=== PATIENT | male | born 1935 | race Caucasian/White ===

== ENCOUNTER 2018-01-25 14:55 | Observation (INO) | payer OTHER ==
--- NOTE | 2018-01-25 15:15 | PDOC ---
History of Present Illness - General Stated Complaint: Unresponsive Time Seen by Provider: 01/25/18 15:01 History Source: Patient Exam Limitations: Language Barrier ([id number]) - History of Present Illness Initial Comments: 01/25/18 16:03 82 yo M with a hx of vascular dementia, afib on eliquis, CVA, DM, HTN, HLD, BPH , and neurogenic bladder per nursing records BIBA for altered mental status that occurred at approximately 2pm. Per [facility] on [place], they stated he was unresponsive to voice for approximately 20 minutes with drooling, hypotension ( 95/57 normally normotensive), hypoxic (87%), with normal blood glucose (150). Per EMS, the patient was alert and responsive (patient only speaks Hong Konger) when they arrived. Per EMS, the patient was back to baseline per nursing staff. While in the department, the patient states he has no chief complaint and is asymptomatic. Denies the following: fever, chills, nausea, vomiting, FND, visual changes, chest pain, ears/nose/throat pain, SOB, abdominal pain, dysuria , hematuria, melena, hematochezia, diarrhea, and leg pain and swelling. Denies palpitations and LOC. Allergies: NKDA Social: Denies tobacco, alcohol, and drug use. Past History - Past Medical History Allergies/Adverse Reactions: Allergies Allergy/AdvReac Type Severity Reaction Status Date / Time No Known Allergies Allergy Verified 01/25/18 15:38 Home Medications: Ambulatory Orders Acetaminophen 1,000 mg PO DAILY 01/25/18 Alfuzosin HCl [Uroxatral] 10 mg PO DAILY 01/25/18 Apixaban [Eliquis -] 2.5 mg PO BID 01/25/18 Atorvastatin Ca [Lipitor] 40 mg PO HS 01/25/18 Docusate Sodium 200 mg PO HS 01/25/18 Donepezil HCl 10 mg PO HS 01/25/18 Escitalopram Oxalate [Lexapro -] 10 mg PO DAILY 01/25/18 Guaifenesin [Robitussin] 100 mg PO Q6H 01/25/18 Lisinopril 5 mg PO DAILY 01/25/18 Memantine HCl [Namenda Xr] 28 mg PO DAILY 01/25/18 Polyethylene Glycol 3350 17 gm PO BID 01/25/18 Risperidone [Risperdal -] 0.5 mg PO HS 01/25/18 Sennosides [Senokot] 8.6 mg PO HS 01/25/18 metFORMIN HCL [Metformin HCl] 500 mg PO BID 01/25/18 Review of Systems - Review of Systems Able to Perform ROS?: Yes (limited; dementia) Is the patient limited Fijian proficient: No Constitutional: No: Chills, Diaphoresis, Fever, Weakness HEENTM: No: Recent change in vision, Ear Pain, Nose Pain, Throat Pain, Mouth Pain Respiratory: No: Cough, Shortness of Breath, SOB with Exertion, Hemoptysis Cardiac (ROS): No: Chest Pain, Lightheadedness, Palpitations, Syncope, Chest Tightness ABD/GI: No: Constipated, Diarrhea, Nausea, Rectal Bleeding, Vomiting, Tarry Stools : No: Burning, Dysuria, Hematuria, Urgency Musculoskeletal: No: Back Pain, Joint Pain, Neck Pain Integumentary: No: Bruising, Rash Neurological: No: Headache, Numbness, Tremors, Unsteady Gait, Ataxia Psychiatric: No: Stressors Endocrine: No: Unexplained Weight Gain Hematologic/Lymphatic: No: Anemia, Blood Clots *Physical Exam - Physical Exam General Appearance: Yes: Nourished, Appropriately Dressed. No: Apparent Distress, Intoxicated HEENT: positive: EOMI, REGINE, Normal Voice, Symmetrical, Hearing Grossly Normal. negative: Pale Conjunctivae, Scleral Icterus (R), Scleral Icterus (L), Muffled /Hoarse voice, Nasal Congestion, Rhinorrhea, Sinus Tenderness, Excessive drooling Neck: positive: Trachea midline. negative: Tender, Lymphadenopathy (R), Lymphadenopathy (L), Tender lateral, Tender midline Respiratory/Chest: positive: Lungs Clear, Normal Breath Sounds. negative: Chest Tender, Respiratory Distress, Accessory Muscle Use Cardiovascular: positive: Regular Rate, S1, S2, Irregularly Irregular. negative : Systolic Murmur Gastrointestinal/Abdominal: positive: Normal Bowel Sounds, Flat, Soft. negative : Tender Lymphatic: negative: Adenopathy Musculoskeletal: positive: Normal Inspection. negative: CVA Tenderness, Vertebral Tenderness Extremity: positive: Normal Capillary Refill, Normal Inspection, Normal Range of Motion. 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 negative: Fully Oriented (only to self) Heart Score/ECG Review - ECG Intrepretation Comment:: 01/26/18 00:23 ventricular rate is 102 bpm, QRS 88 ms. [address] fibrillation. no st elevations or depressions noted. t wave inversion in V2. ED Treatment Course - LABORATORY CBC & Chemistry Diagram: 01/25/18 18:26 01/25/18 18:26 Medical Decision Making - Medical Decision Making 01/26/18 00:19 82 yo M with a hx of vascular dementia, afib on eliquis, CVA, DM, HTN, HLD, BPH , and neurogenic bladder per nursing records BIBA for altered mental status that occurred at approximately 2pm Initial vitals: Initial Vital Signs Temp Pulse Resp BP Pulse Ox 97.6 F 102 H 14 99/55 L 100 01/25/18 15:00 01/25/18 15:00 01/25/18 15:00 01/25/18 15:00 01/25/18 15:00 Work up: ddx: AMS per EMS but possible syncopal episode vs cva (unlikely given no apparent new deficits, return to baseline). syncope etiology infectious vs cardiogenic vs vasovagal vs neurogenic. will r/o cardiac and infectious etiology. AMS possibly due to delirium. Laboratory Tests 01/25/18 01/25/18 01/25/18 17:50 18:26 18:26 WBC 12.1 H RBC 4.86 Hgb 14.5 Hct 43.4 MCV 89.3 MCH 29.9 MCHC 33.4 RDW 15.5 Plt Count 187 MPV 10.3 Absolute Neuts (auto) 10.1 H Neutrophils % 83.4 H Lymphocytes % 11.0 Monocytes % 5.2 Eosinophils % 0.2 Basophils % 0.2 Nucleated RBC % 0 Sodium 143 Potassium 4.4 Chloride 107 Carbon Dioxide 24 Anion Gap 13 BUN 18 Creatinine 1.3 Creat Clearance w eGFR 52.85 Random Glucose 97 Calcium 8.9 Total Bilirubin 0.5 AST 12 L ALT 18 Alkaline Phosphatase 118 H Creatine Kinase 109 Troponin I < 0.02 B-Natriuretic Peptide 1507.7 H Total Protein 6.6 Albumin 3.5 Urine Color Celia Urine Appearance Slcloudy Urine pH 5.0 Ur Specific [place] 1.019 Urine Protein Negative Urine Glucose (UA) Negative Urine Ketones Negative Urine Blood Negative Urine Nitrite Negative Urine Bilirubin Negative Urine Urobilinogen 2.0 Ur Leukocyte Esterase Trace Urine WBC (Auto) 1 Urine RBC (Auto) 1 Ur Epithelial Cells Rare Hyaline Casts 12 Urine Mucus Many 01/25/18 21:10 WBC RBC Hgb Hct MCV MCH MCHC RDW Plt Count MPV Absolute Neuts (auto) Neutrophils % Lymphocytes % Monocytes % Eosinophils % Basophils % Nucleated RBC % Sodium Potassium Chloride Carbon Dioxide Anion Gap BUN Creatinine Creat Clearance w eGFR Random Glucose Calcium Total Bilirubin AST ALT Alkaline Phosphatase Creatine Kinase 87 Troponin I < 0.02 B-Natriuretic Peptide Total Protein Albumin Urine Color Urine Appearance Urine pH Ur Specific [place] Urine Protein Urine Glucose (UA) Urine Ketones Urine Blood Urine Nitrite Urine Bilirubin Urine Urobilinogen Ur Leukocyte Esterase Urine WBC (Auto) Urine RBC (Auto) Ur Epithelial Cells Hyaline Casts Urine Mucus a head CT and CXR were ordered. no new acute pathologies noted in either exam. the patient has been pleasant throughout the emergency department stay. the hx seems to make syncope a likely reason to the AMS that was witnessed at the half-way and quick return to baseline thereafter. will admit the patient to obs [facility] for further cardiac work up. trops were negative, BNP was elevated in 1500s, and WBC elevated at 12.1. Dispo: Admit *DC/Admit/Observation/Transfer Diagnosis at time of Disposition: Syncope Qualifiers: Syncope type: unspecified Qualified Code(s): R55 - Syncope and collapse - Referrals - Patient Instructions - Post Discharge Activity
[2018-01-25 15:37] VITALS: BMI 35.4
[2018-01-25 18:24] LABS: URINE APPEARANCE SLCLOUDY; URINE BILIRUBIN NEGATIVE (<2.0 mg/dL); URINE COLOR AMBER; URINE GLUCOSE (UA) NEGATIVE (NEGATIVE); URINE KETONE NEGATIVE (NEGATIVE); URINE LEUK ESTERASE TRACE (NEGATIVE); URINE NITRITE NEGATIVE (NEGATIVE); URINE PROTEIN NEGATIVE (NEGATIVE)
[2018-01-25 18:48] LABS: EPI CELLS RARE /HPF (FEW); URINE HYALINE CAST 12 /lpf; URINE MUCUS MANY
[2018-01-25 19:10] LABS: BASO % 0.2 % (0-2.0); EOS % 0.2 % (0-4.5); HEMATOCRIT 43.4 % (35.4-49); HEMOGLOBIN 14.5 GM/dL (11.7-16.9); MCH 29.9 pg (25.7-33.7); MCHC 33.4 g/dl (32.0-35.9); MEAN CELL VOLUME 89.3 fl (80-96); MEAN PLT VOLUME 10.3 fl (7.5-11.1); MONO % 5.2 % (3.8-10.2); NEUT % 83.4 % (42.8-82.8); PLATELET COUNT 187 K/MM3 (134-434); RBC 4.86 M/mm3 (4.00-5.60); RDW 15.5 % (11.9-15.9); WHITE BLOOD COUNT 12.1 K/mm3 (4.0-10.0)
[2018-01-25 19:38] LABS: ALBUMIN 3.5 g/dl (3.4-5.0); ALK PHOS 118 U/L (45-117); ANION GAP 13 MMOL/L (8-16); BILIRUBIN,TOTAL 0.5 mg/dL (0.2-1); BLOOD UREA NITROGEN 18 mg/dL (7-18); CALCIUM 8.9 mg/dL (8.5-10.1); CHLORIDE 107 mmol/L (98-107); CO2 24 mmol/L (21-32); CREATININE 1.3 mg/dL (0.55-1.3); GLUCOSE,RANDOM 97 mg/dL (74-106); N-TERMINAL BNP 1507.7 pg/ml (5-450); POTASSIUM 4.4 mmol/L (3.5-5.1); SGOT/AST 12 U/L (15-37); SGPT/ALT 18 U/L (13-61); SODIUM 143 mmol/L (136-145); TOT PROT 6.6 g/dl (6.4-8.2)
--- NOTE | 2018-01-25 19:51 | PDOC ---
Attending Attestation - Resident Resident Name: Parker Villalpando - ED Attending Attestation I have performed the following: I have examined & evaluated the patient, The case was reviewed & discussed with the resident, I agree w/resident's findings & plan, Exceptions are as noted - HPI HPI: 01/25/18 19:46 The patient is an 82 year old male with a significant past medical history of vascular dementia, Afib on eliquis, CVA, DM, HTN, HLD, BPH, and neurogenic bladder who presents to the emergency department via EMS for an episode of unresponsiveness noticed by [facility] on [facility] staff around 2pm. As per nursing staff, the patient was unresponsive for about 20 minutes before waking up. Pt still had pulse and was breathing spontaneously. Per EMS, the patient was alert and responsive (speaking Afghan) when they arrived to the [place] but was intermittently lethargic en route. Had normal fingerstick. - Physicial Exam PE: 01/25/18 19:49 Agree with resident exam - Medical Decision Making 01/25/18 19:49 82 M with episode of unresponsiveness at [place]. Also found to be intermittently lethargic with EMS. EKG with no signs of arrhythmia. Will evaluate for infectious process given lethargy. CVA unlikely given nonfocal neuro exam. No seizure-like activity witnessed by [place] staff. - Labs, trop - CT head - CXR, UA - Admit tele
--- NOTE | 2018-01-25 20:41 | HP ---
Admitting History and Physical - Primary Care Physician PCP: Gino Donaldson - Admission History of Present Illness: 82 year old male with a significant past medical history of vascular dementia, Afib on eliquis, CVA, DM, HTN, HLD, BPH, and neurogenic bladder who presents to the emergency department via EMS for an episode of unresponsiveness noticed by Harriett on [facility] staff around 2pm. As per nursing staff, the patient was unresponsive for about 20 minutes before waking up. Pt still had pulse and was breathing spontaneously. Per EMS, the patient was alert and responsive (speaking [place] Islander) when they arrived to the [place] but was intermittently lethargic en route. Had normal fingerstick. 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: CVA Cardiovascular: Yes: HTN, Hyperlipdemia - Smoking History Smoking history: Unknown if ever smoked Home Medications - Allergies Allergies/Adverse Reactions: Allergies Allergy/AdvReac Type Severity Reaction Status Date / Time No Known Allergies Allergy Verified 01/25/18 15:38 - Home Medications Home Medications: Ambulatory Orders Acetaminophen 1,000 mg PO DAILY 01/25/18 Alfuzosin HCl [Uroxatral] 10 mg PO DAILY 01/25/18 Apixaban [Eliquis -] 2.5 mg PO BID 01/25/18 Atorvastatin Ca [Lipitor] 40 mg PO HS 01/25/18 Docusate Sodium 200 mg PO HS 01/25/18 Donepezil HCl 10 mg PO HS 01/25/18 Escitalopram Oxalate [Lexapro -] 10 mg PO DAILY 01/25/18 Guaifenesin [Robitussin] 100 mg PO Q6H 01/25/18 Lisinopril 5 mg PO DAILY 01/25/18 Memantine HCl [Namenda Xr] 28 mg PO DAILY 01/25/18 Polyethylene Glycol 3350 17 gm PO BID 01/25/18 Risperidone [Risperdal -] 0.5 mg PO HS 01/25/18 Sennosides [Senokot] 8.6 mg PO HS 01/25/18 metFORMIN HCL [Metformin HCl] 500 mg PO BID 01/25/18 Physical Examination Vital Signs: Vital Signs Temperature 97.6 F 01/25/18 15:00 Pulse Rate 95 H 01/25/18 19:41 Respiratory Rate 20 01/25/18 19:41 Blood Pressure 110/56 L 01/25/18 19:41 O2 Sat by Pulse Oximetry (%) 100 01/25/18 19:41 Constitutional: Yes: No Distress HENT: Yes: Atraumatic Neck: Yes: Supple Cardiovascular: Yes: Regular Rate and Rhythm Respiratory: Yes: CTA Bilaterally Gastrointestinal: Yes: Normal Bowel Sounds Extremities: Yes: WNL Edema: No Peripheral Pulses WNL: Yes Labs: CBC, BMP 01/25/18 18:26 01/25/18 18:26 Problem List - Problems (1) Syncope Assessment/Plan: tele monitoring fu troponins cardiology consult ech carotid doppler Code(s): R55 - SYNCOPE AND COLLAPSE Qualifiers: Syncope type: unspecified Qualified Code(s): R55 - Syncope and collapse (2) HTN (hypertension) Assessment/Plan: monitor on meds Code(s): I10 - ESSENTIAL (PRIMARY) HYPERTENSION Qualifiers: Hypertension type: essential hypertension Qualified Code(s): I10 - Essential (primary) hypertension (3) HLD (hyperlipidemia) Code(s): E78.5 - HYPERLIPIDEMIA, UNSPECIFIED Qualifiers: Hyperlipidemia type: pure hypercholesterolemia Qualified Code(s): E78.00 - Pure hypercholesterolemia, unspecified; E78.0 - Pure hypercholesterolemia (4) Diabetes Assessment/Plan: on meds check bgm Code(s): E11.9 - TYPE 2 DIABETES MELLITUS WITHOUT COMPLICATIONS Qualifiers: Diabetes mellitus type: type 2 Diabetes mellitus hospitality 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 insulin use: without hospitality workers use Diabetes mellitus complication status: with kidney complications Diabetes mellitus complication detail: with chronic kidney disease Chronic kidney disease stage: stage 2 (mild) Qualified Code(s): E11.22 - Type 2 diabetes mellitus with diabetic chronic kidney disease; N18.2 - Chronic kidney disease, stage 2 (mild) (5) Afib Assessment/Plan: on eliquis Code(s): I48.91 - UNSPECIFIED ATRIAL FIBRILLATION Qualifiers: Atrial fibrillation type: persistent Qualified Code(s): I48.1 - Persistent atrial fibrillation Assessment/Plan Laboratory Tests 01/25/18 01/25/18 01/25/18 17:50 18:26 18:26 WBC 12.1 H RBC 4.86 Hgb 14.5 Hct 43.4 MCV 89.3 MCH 29.9 MCHC 33.4 RDW 15.5 Plt Count 187 MPV 10.3 Absolute Neuts (auto) 10.1 H Neutrophils % 83.4 H Lymphocytes % 11.0 Monocytes % 5.2 Eosinophils % 0.2 Basophils % 0.2 Nucleated RBC % 0 Sodium 143 Potassium 4.4 Chloride 107 Carbon Dioxide 24 Anion Gap 13 BUN 18 Creatinine 1.3 Creat Clearance w eGFR 52.85 Random Glucose 97 Calcium 8.9 Total Bilirubin 0.5 AST 12 L ALT 18 Alkaline Phosphatase 118 H Creatine Kinase 109 Troponin I < 0.02 B-Natriuretic Peptide 1507.7 H Total Protein 6.6 Albumin 3.5 Urine Color Celia Urine Appearance Slcloudy Urine pH 5.0 Ur Specific [place] 1.019 Urine Protein Negative Urine Glucose (UA) Negative Urine Ketones Negative Urine Blood Negative Urine Nitrite Negative Urine Bilirubin Negative Urine Urobilinogen 2.0 Ur Leukocyte Esterase Trace Urine WBC (Auto) 1 Urine RBC (Auto) 1 Ur Epithelial Cells Rare Hyaline Casts 12 Urine Mucus Many Active Medications Generic Name Dose Route Start Last Admin Trade Name Freq PRN Reason Stop Dose Admin Apixaban 5 mg 01/26/18 22:00 Eliquis - PO BID BREANA Atorvastatin Calcium 40 mg 01/25/18 22:00 01/25/18 21:23 Lipitor - PO 40 mg HS BREANA Administration Docusate Sodium 200 mg 01/25/18 22:00 01/25/18 21:23 Colace - PO Not Given HS BREANA Donepezil HCl 10 mg 01/25/18 22:00 01/25/18 21:23 Aricept - PO 10 mg HS BREANA Administration Escitalopram Oxalate 10 mg 01/26/18 10:00 01/26/18 10:11 Lexapro - PO Not Given DAILY BREANA Lisinopril 5 mg 01/26/18 10:00 01/26/18 10:11 Prinivil PO Not Given DAILY BREANA Metformin HCl 500 mg 01/25/18 21:00 01/26/18 06:31 Glucophage - PO Not Given BIDAC BREANA Non-Formulary Medication 28 mg 01/26/18 10:00 Memantine Hcl [Namenda Xr] PO DAILY BREANA Polyethylene Glycol 17 gm 01/25/18 22:00 01/26/18 10:19 Miralax (For Daily Use) - PO Not Given BID BREANA Risperidone 0.5 mg 01/25/18 22:00 01/25/18 21:23 Risperdal - PO 0.5 mg HS BREANA Administration Senna 1 tab 01/25/18 22:00 01/25/18 21:23 Senna - PO Not Given HS [facility] Tamsulosin HCl 0.4 mg 01/26/18 08:30 01/26/18 09:00 Flomax - PO Not Given DAILY@0830 BREANA
[2018-01-25] MEDS ORDERED: DOCUSATE SODIUM 100 MG CAPSULE (FP) PO ONE (21:05)
[2018-01-25] MEDS ORDERED: metFORMIN HCL 500 MG TABLET (FP) ONE (21:05)
[2018-01-25] MEDS ORDERED: ATORVASTATIN CA 40 MG TABLET (FP) ONE (21:05)
[2018-01-25] MEDS ORDERED: APIXABAN 5 MG TABLET PO ONE (21:05)
[2018-01-25] MEDS ORDERED: risperiDONE 0.5 MG TABLET (FP) ONE (21:05)
[2018-01-25] MEDS ORDERED: DONEPEZIL HCL 5 MG TABLET (FP) ONE (21:06)
[2018-01-25] MEDS: DOCUSATE SODIUM 100 MG CAPSULE (FP) PO SCH (21:23)
[2018-01-25] MEDS: ATORVASTATIN CA 40 MG TABLET (FP) PO SCH (21:23)
[2018-01-25] MEDS: POLYETHYLENE GLYCOL 3350 119 GM BTL PO SCH (21:23)
[2018-01-25] MEDS: SENNOSIDES 8.6MG TABLET (FP) PO SCH (21:23)
[2018-01-25] MEDS: metFORMIN HCL 500 MG TABLET (FP) PO SCH (21:23)
[2018-01-25] MEDS: DONEPEZIL HCL 10 MG TABLET (FP) PO SCH (21:23)
[2018-01-25] MEDS: APIXABAN 2.5 MG TABLET PO SCH (21:23)
[2018-01-25] MEDS: risperiDONE 0.5 MG TABLET (FP) PO SCH (21:23)
[2018-01-26] MEDS: metFORMIN HCL 500 MG TABLET (FP) PO SCH ×2 (06:31→18:39)
[2018-01-26] MEDS: TAMSULOSIN HCL 0.4 MG CAP PO SCH (09:00)
--- NOTE | 2018-01-26 09:58 | CON.CARD ---
Consult Consult Specialty:: Cardiology Referred by:: Gino Donaldson MD Reason for Consultation:: Syncope - History of Present Illness Chief Complaint: Syncope History of Present Illness: The patient is an 82 year old male with a past medical history of vascular dementia NHR, Afib on eliquis, CVA, DM, HTN, HLD, BPH, and neurogenic bladder who presents to the emergency department for an episode of unresponsiveness noticed by Harriett on [facility] staff with drooling, hypotension (95/ 57 normally normotensive), hypoxic (87%), with normal blood glucose (150). As per nursing staff, the patient was unresponsive for about 20 minutes before waking up. Pt still had pulse and was breathing spontaneously. Per EMS, the patient was alert and responsive (speaking Iranian) when they arrived to the [place] but was intermittently lethargic en route. Had normal fingerstick. Currently interactive, denied prodromal sxs. Tele shows PAF w/o sig pauses. Allergies: NKDA Social: Denies tobacco, alcohol, and drug use. 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: CVA Cardio/Vascular: Yes: HTN, Hyperlipdemia - Alcohol/Substance Use Hx Alcohol Use: No - Smoking History Smoking history: Unknown if ever smoked Have you smoked in the past 12 months: No Home Medications - Allergies Allergies/Adverse Reactions: Allergies Allergy/AdvReac Type Severity Reaction Status Date / Time No Known Allergies Allergy Verified 01/25/18 15:38 - Home Medications Home Medications: Ambulatory Orders Acetaminophen 1,000 mg PO DAILY 01/25/18 Alfuzosin HCl [Uroxatral] 10 mg PO DAILY 01/25/18 Apixaban [Eliquis -] 2.5 mg PO BID 01/25/18 Atorvastatin Ca [Lipitor] 40 mg PO HS 01/25/18 Docusate Sodium 200 mg PO HS 01/25/18 Donepezil HCl 10 mg PO HS 01/25/18 Escitalopram Oxalate [Lexapro -] 10 mg PO DAILY 01/25/18 Guaifenesin [Robitussin] 100 mg PO Q6H 01/25/18 Lisinopril 5 mg PO DAILY 01/25/18 Memantine HCl [Namenda Xr] 28 mg PO DAILY 01/25/18 Polyethylene Glycol 3350 17 gm PO BID 01/25/18 Risperidone [Risperdal -] 0.5 mg PO HS 01/25/18 Sennosides [Senokot] 8.6 mg PO HS 01/25/18 metFORMIN HCL [Metformin HCl] 500 mg PO BID 01/25/18 Review of Systems - Review of Systems Neurological: reports: Syncope Vital Signs: Vital Signs Temperature 97.4 F L 01/26/18 02:00 Pulse Rate 93 H 01/26/18 02:00 Respiratory Rate 18 01/26/18 02:00 Blood Pressure 144/70 01/26/18 02:00 O2 Sat by Pulse Oximetry (%) 95 01/26/18 05:00 Constitutional: Yes: No Distress, Calm Neck: Yes: Supple Respiratory: Yes: Regular, Diminished Gastrointestinal: Yes: Soft, Abdomen, Obese, Hypoactive Bowel Sounds Cardiovascular: Yes: Pulse Irregular JVD: No Carotid Bruit: No Heart Sounds: Yes: S1, S2 Edema: No - Other Data Labs, Other Data: CBC, BMP 01/25/18 18:26 01/25/18 18:26 Troponin, BNP 01/25/18 01/25/18 01/26/18 18:26 21:10 06:00 Troponin I < 0.02 < 0.02 < 0.02 B-Natriuretic Peptide 1507.7 H Troponin, BNP 01/25/18 01/25/18 01/26/18 18:26 21:10 06:00 Troponin I < 0.02 < 0.02 < 0.02 B-Natriuretic Peptide 1507.7 H Afib @ 102 Tele: Afib w/o sig pauses Problem List - Problems (1) Chronic anticoagulation Code(s): Z79.01 - INTERMEDIATE (CURRENT) USE OF ANTICOAGULANTS (2) Afib Code(s): I48.91 - UNSPECIFIED ATRIAL FIBRILLATION Qualifiers: Atrial fibrillation type: persistent Qualified Code(s): I48.1 - Persistent atrial fibrillation (3) Diabetes Code(s): E11.9 - TYPE 2 DIABETES MELLITUS WITHOUT COMPLICATIONS Qualifiers: Diabetes mellitus type: type 2 Diabetes mellitus firewall security engineer insulin use: without firewall security engineer use Diabetes mellitus complication status: with kidney complications Diabetes mellitus complication detail: with chronic kidney disease Chronic kidney disease stage: stage 2 (mild) Qualified Code(s): E11.22 - Type 2 diabetes mellitus with diabetic chronic kidney disease; N18.2 - Chronic kidney disease, stage 2 (mild) (4) HLD (hyperlipidemia) Code(s): E78.5 - HYPERLIPIDEMIA, UNSPECIFIED Qualifiers: Hyperlipidemia type: pure hypercholesterolemia Qualified Code(s): E78.00 - Pure hypercholesterolemia, unspecified; E78.0 - Pure hypercholesterolemia (5) HTN (hypertension) Code(s): I10 - ESSENTIAL (PRIMARY) HYPERTENSION Qualifiers: Hypertension type: essential hypertension Qualified Code(s): I10 - Essential (primary) hypertension (6) Syncope Code(s): R55 - SYNCOPE AND COLLAPSE Qualifiers: Syncope type: unspecified Qualified Code(s): R55 - Syncope and collapse Assessment/Plan 1. Syncope 2. Persistent afib on NOAC 3. Hypertensive heart disease 4. Hyperlipidemia 5. Type 2 DM 6. Dementia 7. CKD P:1. Declines orthostatic VS 2. Echo to assess ventricular and valve fxn 3. nurse monitoring r/o pause, sick sinus syndrome, not on AV kyree blocking agents 4. Increase Eliquis 5 bid (wt>60 kg, Cr<1.5, age<85), Lipitor 40 qhs, lisinopril 5 qd 5. Thank you for consultative opportunity
[2018-01-26] MEDS ORDERED: PATIENT'S OWN MEDICATION (NON-FORMULARY) (Memantine Hcl [Namenda Xr] 28 MG) PO SCH (10:00)
[2018-01-26] MEDS: LISINOPRIL 5 MG TABLET (FP) PO SCH (10:11)
[2018-01-26] MEDS: APIXABAN 2.5 MG TABLET PO SCH (10:11)
[2018-01-26] MEDS: ESCITALOPRAM OXALATE 10 MG TABLET (FP) PO SCH (10:11)
[2018-01-26] MEDS: POLYETHYLENE GLYCOL 3350 119 GM BTL PO SCH ×2 (10:19→21:24)
--- NOTE | 2018-01-26 12:03 | ECHO ---
Name: YAZMIN BELLO Exam:Adult Echocardiogram Study Date: 01/26/2018 10:23 AM Age: 82 yrs Reason For Study: SYNCOPE Height: 69 in Weight: 240 lb BSA: 2.2 m2 MMode/2D Measurements & Calculations IVSd: 0.91 cm Ao root diam: 2.6 cm LVIDd: 4.5 cm LA dimension: 3.3 cm LVIDs: 3.2 cm LVPWd: 0.77 cm EDV(Teich): 91.8 ml ESV(Teich): 41.8 ml Doppler Measurements & Calculations MV E max adeel: 66.6 cm/sec TR max adeel: 188.1 cm/sec MV A max adeel: 24.2 cm/sec TR max P.2 mmHg MV E/A: 2.8 MV dec time: 0.24 sec Med Peak E' Adeel: 11.1 cm/sec Med E/e': 6.0 Lat Peak E' Adeel: 10.0 cm/sec Lat E/e': 6.6 Procedure A complete two-dimensional transthoracic echocardiogram was performed (2D, M-mode, Doppler and color flow Doppler). The study was technically difficult with many images being suboptimal in quality. Left Ventricle The left ventricular size, thickness and function are normal. Ejection Fraction = 60-65%. Regional wa ll motion abnormalities cannot be excluded due to limited visualization. Right Ventricle The right ventricle is normal in size and function. Atria Normal left and right atrial size and function. Mitral Valve There is no mitral regurgitation noted. Tricuspid Valve There is trace tricuspid regurgitation. Aortic Valve No hemodynamically significant valvular aortic stenosis. No aortic regurgitation is present. Pulmonic Valve There is no pulmonic valvular regurgitation. Great Vessels The aortic root is normal size. Pericardium/Pleura There is no pericardial effusion. Interpretation Summary The study was technically difficult with many images being suboptimal in quality. The left ventricular size, thickness and function are normal Regional wall motion abnormalities cannot be excluded due to limited visualization. The right ventricle is normal in size and function. There is trace tricuspid regurgitation. MD Earnest De La Garza 01/26/2018 12:02 PM
--- NOTE | 2018-01-26 12:51 | EKG ---
Test Reason : Blood Pressure : / mmHG Vent. Rate : 102 BPM Atrial Rate : 081 BPM P-R Int : 000 ms QRS Dur : 088 ms QT Int : 338 ms P-R-T Axes : 000 008 003 degrees QTc Int : 440 ms ATRIAL FIBRILLATION WITH RAPID VENTRICULAR RESPONSE CANNOT RULE OUT INFERIOR INFARCT , AGE UNDETERMINED ABNORMAL ECG NO PREVIOUS ECGS AVAILABLE Confirmed by NEGRITA CHANDLER MD ([id number]) on 01/26/2018 12:50:41 PM Referred By: Confirmed By:NEGRITA CHANDLER MD
[2018-01-26 14:30] VITALS: TEMP 97.5
--- NOTE | 2018-01-26 16:42 | PN ---
Progress Note, Physician - Current Medication List Current Medications: Active Medications Apixaban (Eliquis -) 5 mg PO BID [facility] Atorvastatin Calcium (Lipitor -) 40 mg PO [facility] Last Admin: 01/25/18 21:23 Dose: 40 mg Docusate Sodium (Colace -) 200 mg PO HS [facility] Last Admin: 01/25/18 21:23 Dose: Not Given Donepezil HCl (Aricept -) 10 mg PO HS [facility] Last Admin: 01/25/18 21:23 Dose: 10 mg Escitalopram Oxalate (Lexapro -) 10 mg PO DAILY [facility] Last Admin: 01/26/18 10:11 Dose: Not Given Lisinopril (Prinivil) 5 mg PO DAILY [facility] Last Admin: 01/26/18 10:11 Dose: Not Given [facility] Last Admin: 01/26/18 06:31 Dose: Not Given Non-Formulary Medication (Memantine Hcl [Namenda Xr]) 28 mg PO DAILY [facility] Polyethylene Glycol (Miralax (For Daily Use) -) 17 gm PO BID [facility] Last Admin: 01/26/18 10:19 Dose: Not Given Risperidone (Risperdal -) 0.5 mg PO [facility] Last Admin: 01/25/18 21:23 Dose: 0.5 mg Senna (Senna -) 1 tab PO [facility] Last Admin: 01/25/18 21:23 Dose: Not Given Tamsulosin HCl (Flomax -) 0.4 mg PO DAILY@0830 [facility] Last Admin: 01/26/18 09:00 Dose: Not Given - Objective Vital Signs: Vital Signs Temperature 97.5 F L 01/26/18 14:29 Pulse Rate 92 H 01/26/18 14:29 Respiratory Rate 16 01/26/18 14:29 Blood Pressure 141/86 01/26/18 14:29 O2 Sat by Pulse Oximetry (%) 97 01/26/18 13:00 HENT: Yes: WNL Cardiovascular: Yes: Regular Rate and Rhythm Respiratory: Yes: CTA Bilaterally Gastrointestinal: Yes: Normal Bowel Sounds Extremities: Yes: WNL Neurological: Yes: Alert, Oriented Labs: CBC, BMP 01/25/18 18:26 01/25/18 18:26 Problem List - Problems (1) Syncope Assessment/Plan: tele monitoring fu troponins cardiology consult ech carotid doppler Code(s): R55 - SYNCOPE AND COLLAPSE Qualifiers: Syncope type: unspecified Qualified Code(s): R55 - Syncope and collapse (2) HTN (hypertension) Code(s): I10 - ESSENTIAL (PRIMARY) HYPERTENSION Qualifiers: Hypertension type: essential hypertension Qualified Code(s): I10 - Essential (primary) hypertension (3) HLD (hyperlipidemia) Code(s): E78.5 - HYPERLIPIDEMIA, UNSPECIFIED Qualifiers: Hyperlipidemia type: pure hypercholesterolemia Qualified Code(s): E78.00 - Pure hypercholesterolemia, unspecified; E78.0 - Pure hypercholesterolemia (4) Diabetes Code(s): E11.9 - TYPE 2 DIABETES MELLITUS WITHOUT COMPLICATIONS Qualifiers: Diabetes mellitus type: type 2 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
[2018-01-26] MEDS ORDERED: PT OWN MED DRAWER 7, Y5N ONE (21:06)
[2018-01-26] MEDS: DONEPEZIL HCL 10 MG TABLET (FP) PO SCH (21:11)
[2018-01-26] MEDS: APIXABAN 5 MG TABLET PO SCH (21:11)
[2018-01-26] MEDS: ATORVASTATIN CA 40 MG TABLET (FP) PO SCH (21:11)
[2018-01-26] MEDS: risperiDONE 0.5 MG TABLET (FP) PO SCH (21:11)
[2018-01-26] MEDS: DOCUSATE SODIUM 100 MG CAPSULE (FP) PO SCH (21:24)
[2018-01-26] MEDS: SENNOSIDES 8.6MG TABLET (FP) PO SCH (21:24)
[2018-01-26] MEDS ORDERED: APIXABAN 5 MG TABLET PO SCH (22:00)
[2018-01-27 06:56] VITALS: BP 123/78; PULSE 99
[2018-01-27] MEDS: metFORMIN HCL 500 MG TABLET (FP) PO SCH (06:59)
[2018-01-27 07:19] LABS: BASO % 0.3 % (0-2.0); EOS % 3.3 % (0-4.5); HEMATOCRIT 41.4 % (35.4-49); HEMOGLOBIN 13.3 GM/dL (11.7-16.9); LYMPH % 18.4 % (8-40); MCH 28.8 pg (25.7-33.7); MCHC 32.2 g/dl (32.0-35.9); MEAN CELL VOLUME 89.4 fl (80-96); MEAN PLT VOLUME 9.5 fl (7.5-11.1); MONO % 6.9 % (3.8-10.2); NEUT % 71.1 % (42.8-82.8); PLATELET COUNT 159 K/MM3 (134-434); RBC 4.63 M/mm3 (4.00-5.60); RDW 15.8 % (11.9-15.9); WHITE BLOOD COUNT 9.1 K/mm3 (4.0-10.0)
[2018-01-27 08:01] LABS: ALK PHOS 94 U/L (45-117); ANION GAP 9 MMOL/L (8-16); BILIRUBIN,TOTAL 0.8 mg/dL (0.2-1); BLOOD UREA NITROGEN 17 mg/dL (7-18); CALCIUM 8.3 mg/dL (8.5-10.1); CHLORIDE 106 mmol/L (98-107); CO2 27 mmol/L (21-32); CREATININE 0.8 mg/dL (0.55-1.3); GLUCOSE,RANDOM 91 mg/dL (74-106); N-TERMINAL BNP 686.2 pg/ml (5-450); POTASSIUM 3.6 mmol/L (3.5-5.1); SGOT/AST 9 U/L (15-37); SGPT/ALT 16 U/L (13-61); SODIUM 142 mmol/L (136-145); TOT PROT 5.6 g/dl (6.4-8.2)
[2018-01-27] MEDS: TAMSULOSIN HCL 0.4 MG CAP PO SCH (08:31)
--- NOTE | 2018-01-27 09:29 | PN ---
Progress Note, Physician History of Present Illness: Denies recurrent near or true syncope, rapid afib on telemetry. - Current Medication List Current Medications: Active Medications Apixaban (Eliquis -) 5 mg PO BID [facility] Last Admin: 01/26/18 21:11 Dose: 5 mg Atorvastatin Calcium (Lipitor -) 40 mg PO [facility] Last Admin: 01/26/18 21:11 Dose: 40 mg Docusate Sodium (Colace -) 200 mg PO [facility] Last Admin: 01/26/18 21:24 Dose: Not Given Donepezil HCl (Aricept -) 10 mg PO [facility] Last Admin: 01/26/18 21:11 Dose: 10 mg Escitalopram Oxalate (Lexapro -) 10 mg PO DAILY [facility] Last Admin: 01/26/18 10:11 Dose: Not Given Lisinopril (Prinivil) 5 mg PO DAILY [facility] Last Admin: 01/26/18 10:11 Dose: Not Given [facility]) [facility] Last Admin: 01/27/18 06:59 Dose: Not Given Non-Formulary Medication (Memantine Hcl [Namenda Xr]) 28 mg PO DAILY [facility] Polyethylene Glycol (Miralax (For Daily Use) -) 17 gm PO BID [facility] Last Admin: 01/26/18 21:24 Dose: Not Given Risperidone (Risperdal -) 0.5 mg PO [facility] Last Admin: 01/26/18 21:11 Dose: 0.5 mg Senna (Senna -) 1 tab PO [facility] Last Admin: 01/26/18 21:24 Dose: Not Given Tamsulosin HCl (Flomax -) 0.4 mg PO DAILY@0830 [facility] Last Admin: 01/26/18 09:00 Dose: Not Given - Objective Vital Signs: Vital Signs Temperature 97.5 F L 01/27/18 06:00 Pulse Rate 99 H 01/27/18 06:00 Respiratory Rate 16 01/27/18 06:00 Blood Pressure 123/78 01/27/18 06:00 O2 Sat by Pulse Oximetry (%) 95 01/26/18 21:00 Constitutional: Yes: No Distress, Calm Neck: Yes: Supple Cardiovascular: Yes: Tachycardia, Pulse Irregular Respiratory: Yes: Regular, CTA Bilaterally Gastrointestinal: Yes: Normal Bowel Sounds, Soft Edema: No Labs: CBC, BMP 01/27/18 06:45 01/27/18 06:45 - ....Imaging EKG: Report Reviewed (Tele: Rapid afib, no sig pauses) Problem List - Problems (1) Chronic anticoagulation Code(s): Z79.01 - SENIOR CARE (CURRENT) USE OF ANTICOAGULANTS (2) Afib Code(s): I48.91 - UNSPECIFIED ATRIAL FIBRILLATION Qualifiers: Atrial fibrillation type: persistent Qualified Code(s): I48.1 - Persistent atrial fibrillation (3) Diabetes Code(s): E11.9 - TYPE 2 DIABETES MELLITUS WITHOUT COMPLICATIONS Qualifiers: Diabetes mellitus type: type 2 Diabetes mellitus nursing home insulin use: without nursing home use Diabetes mellitus complication status: with kidney complications Diabetes mellitus complication detail: with chronic kidney disease Chronic kidney disease stage: stage 2 (mild) Qualified Code(s): E11.22 - Type 2 diabetes mellitus with diabetic chronic kidney disease; N18.2 - Chronic kidney disease, stage 2 (mild) (4) HLD (hyperlipidemia) Code(s): E78.5 - HYPERLIPIDEMIA, UNSPECIFIED Qualifiers: Hyperlipidemia type: pure hypercholesterolemia Qualified Code(s): E78.00 - Pure hypercholesterolemia, unspecified; E78.0 - Pure hypercholesterolemia (5) HTN (hypertension) Code(s): I10 - ESSENTIAL (PRIMARY) HYPERTENSION Qualifiers: Hypertension type: essential hypertension Qualified Code(s): I10 - Essential (primary) hypertension (6) Syncope Code(s): R55 - SYNCOPE AND COLLAPSE Qualifiers: Syncope type: unspecified Qualified Code(s): R55 - Syncope and collapse Assessment/Plan 01/26/2018 Echo: Normal biventricular size and fxn, tr TR 1. Syncope 2. Persistent afib with RVR on NOAC 3. Hypertensive heart disease 4. Hyperlipidemia 5. Type 2 DM 6. Dementia 7. CKD P:1. Declines orthostatic VS 2. manager monitoring to assess adequacy of rate control, r/o pause, sick sinus syndrome 3. Continue Eliquis 5 bid (wt>60 kg, Cr<1.5, age<85), Lipitor 40 qhs, lisinopril 5 qd, start Toprol XL 25 qd
[2018-01-27] MEDS ORDERED: metoPROLOL SUCCINATE 25 MG TAB.SR.24H (FP) PO SCH (10:30)
[2018-01-27] MEDS: POLYETHYLENE GLYCOL 3350 119 GM BTL PO SCH (10:31)
[2018-01-27] MEDS: ESCITALOPRAM OXALATE 10 MG TABLET (FP) PO SCH (10:31)
[2018-01-27] MEDS: APIXABAN 5 MG TABLET PO SCH (10:31)
[2018-01-27] MEDS: LISINOPRIL 5 MG TABLET (FP) PO SCH (10:31)
--- NOTE | 2018-01-27 14:55 | DS ---
Physical Examination Vital Signs: Vital Signs Temperature 97.5 F L 01/27/18 06:00 Pulse Rate 99 H 01/27/18 06:00 Respiratory Rate 16 01/27/18 06:00 Blood Pressure 123/78 01/27/18 06:00 O2 Sat by Pulse Oximetry (%) 95 01/26/18 21:00 Constitutional: Yes: No Distress HENT: Yes: Atraumatic Neck: Yes: Supple Cardiovascular: Yes: Regular Rate and Rhythm Respiratory: Yes: CTA Bilaterally Gastrointestinal: Yes: Normal Bowel Sounds Extremities: Yes: WNL Labs: CBC, BMP 01/27/18 06:45 01/27/18 06:45 Discharge Summary Reason For Visit: SYNCOPE Current Active Problems Afib (Acute) Chronic anticoagulation (Acute) Diabetes (Acute) HLD (hyperlipidemia) (Acute) HTN (hypertension) (Acute) Syncope (Acute) Condition: Fair - Instructions Diet, Activity, Other Instructions: see your pmd 2-3 days fu cardiology Referrals: Lisy Gibson MD [Primary Care Provider] - Benedict Taylor MD [Staff Physician] - Disposition: [facility] - Home Medications Comprehensive Discharge Medication List: Ambulatory Orders Acetaminophen 1,000 mg PO DAILY 01/25/18 Alfuzosin HCl [Uroxatral] 10 mg PO DAILY 01/25/18 Apixaban [Eliquis -] 2.5 mg PO BID 01/25/18 Atorvastatin Ca [Lipitor] 40 mg PO HS 01/25/18 Docusate Sodium 200 mg PO HS 01/25/18 Donepezil HCl 10 mg PO HS 01/25/18 Escitalopram Oxalate [Lexapro -] 10 mg PO DAILY 01/25/18 Guaifenesin [Robitussin -] 100 mg PO Q6H 01/25/18 Lisinopril 5 mg PO DAILY 01/25/18 Memantine HCl [Namenda Xr] 28 mg PO DAILY 01/25/18 Polyethylene Glycol 3350 17 gm PO BID 01/25/18 Risperidone [Risperdal -] 0.5 mg PO HS 01/25/18 Sennosides [Senokot] 8.6 mg PO HS 01/25/18 metFORMIN HCL [Metformin HCl] 500 mg PO BID 01/25/18 Apixaban [Eliquis -] 5 mg PO BID tablet 01/26/18 dc
== END 2018-01-27 15:20 ==
LOC: JER 14:55 → J4S 22:15
PROVIDERS: ADMIT Internal Medicine; ATTEND Internal Medicine
DX: R55 Syncope and collapse (principal); E11.22 Type 2 diabetes mellitus with diabetic chronic kidney disease; I12.9 Hypertensive chronic kidney disease with stage 1 through stage 4 chronic kidney disease, or unspecified chronic kidney disease; N18.2 Chronic kidney disease, stage 2 (mild); Z79.84 Long term (current) use of oral hypoglycemic drugs; E78.5 Hyperlipidemia, unspecified; I48.1 Persistent atrial fibrillation; F01.50 Vascular dementia, unspecified severity, without behavioral disturbance, psychotic disturbance, mood disturbance, and anxiety; N40.0 Benign prostatic hyperplasia without lower urinary tract symptoms; N31.9 Neuromuscular dysfunction of bladder, unspecified; Z86.73 Personal history of transient ischemic attack (TIA), and cerebral infarction without residual deficits; Z79.01 Long term (current) use of anticoagulants
CPT/HCPCS: 36415; 70450-TC; 71045-TC-FY; 80053; 81003; 81015; 82550; 82962; 83880; 84484; 85025; 87086; 93005; 93010; 93306-TC; 99284-25; G0378

== ENCOUNTER 2018-02-02 20:50 | Inpatient (IN) | payer OTHER ==
--- NOTE | 2018-02-02 21:22 | PDOC ---
Attending Attestation - HPI HPI: 02/02/18 23:08 The patient is an 82 year old male, with a significant past medical history of hypertension, hyperlipidemia, diabetes, atrial fibrillation (on Eliquis), prior CVA, neurogenic bladder, recurrent UTIs and vascular dementia, who presents to the emergency department via EMS from [facility] for evaluation. [facility] records report that the patient experienced three episodes of vomiting earlier today. Upon presentation to the emergency department, the patient appears diaphoretic. The patient is unable to provide a history secondary to his baseline dementia. Documentation prepared by Blossom Gomez, acting as manager medical writing for Rosemary Solano MD. <Blossom Mcclure - Last Filed: 02/02/18 23:08> - Resident Resident Name: Francesco Osorio - ED Attending Attestation I have performed the following: I have examined & evaluated the patient, The case was reviewed & discussed with the resident, I agree w/resident's findings & plan, Exceptions are as noted - Physicial Exam PE: GENERAL: Awake, alert, in no acute distress. Nonverbal. HEAD: No signs of trauma EYES: PERRLA, EOMI, sclera anicteric, conjunctiva clear ENT: Auricles normal inspection, hearing grossly normal, nares patent, oropharynx clear without exudates. Moist mucosa NECK: Normal ROM, supple, no lymphadenopathy, JVD, or masses LUNGS: Breath sounds equal, clear to auscultation bilaterally. No wheezes, and no crackles HEART: Regular rate and rhythm, normal S1 and S2, no murmurs, rubs or gallops ABDOMEN: Soft, nontender, normoactive bowel sounds. No guarding, no rebound. No masses EXTREMITIES: Normal range of motion, 2+ pitting edema to BLE. No clubbing or cyanosis. No cords, erythema, or tenderness NEUROLOGICAL: Cranial nerves II through XII grossly intact. Normal speech, normal gait SKIN: Warm, Dry, normal turgor. +Erythematous rash to face, no open lesions. - Medical Decision Making Pt presents with oral temp 99.9, sent by AR for labile BPs. Sepsis protocol initiated. Patient with history of indwelling arriola, ESBL. Will give abx empirically and plan for admission. <Rosemary Solano - Last Filed: 02/02/18 23:49>
--- NOTE | 2018-02-02 21:32 | PDOC ---
History of Present Illness - General Chief Complaint: Nausea/Vomiting Stated Complaint: HYPERTENSION,INFECTION Time Seen by Provider: 02/02/18 21:12 History Source: Patient Exam Limitations: No Limitations - History of Present Illness Initial Comments: 02/02/18 21:38 82M fron [place] on [address], with pmh of htn, paroxysmal afib on eliquis, uti, dementia, DM, CVA with left sided hemiparesis, HLD, urinary retention with known ESBL in urine sent today for 3 episodes of vomiting. BP was 90/70 today. Not on any BP or rate control medication. Was diagnosed with ESBL e.coli UTI from his catheter 2 days ago. Past History - Past Medical History Allergies/Adverse Reactions: Allergies Allergy/AdvReac Type Severity Reaction Status Date / Time No Known Allergies Allergy Verified 02/02/18 20:57 Home Medications: Ambulatory Orders Acetaminophen 1,000 mg PO DAILY 01/25/18 Alfuzosin HCl [Uroxatral] 10 mg PO DAILY 01/25/18 Apixaban [Eliquis -] 2.5 mg PO BID 01/25/18 Atorvastatin Ca [Lipitor] 40 mg PO HS 01/25/18 Docusate Sodium 200 mg PO HS 01/25/18 Donepezil HCl 10 mg PO HS 01/25/18 Escitalopram Oxalate [Lexapro -] 10 mg PO DAILY 01/25/18 Guaifenesin [Robitussin -] 100 mg PO Q6H 01/25/18 Lisinopril 5 mg PO DAILY 01/25/18 Memantine HCl [Namenda Xr] 28 mg PO DAILY 01/25/18 Polyethylene Glycol 3350 17 gm PO BID 01/25/18 Risperidone [Risperdal -] 0.5 mg PO HS 01/25/18 Sennosides [Senokot] 8.6 mg PO HS 01/25/18 metFORMIN HCL [Metformin HCl] 500 mg PO BID 01/25/18 Apixaban [Eliquis -] 5 mg PO BID tablet 01/26/18 Cardiac Disorders: Yes (paroxysmal a fib) CVA: Yes COPD: No Dementia: Yes Diabetes: Yes GI Disorders: Yes (benign prostatic hyperplasia without symptoms) HTN: Yes Seizures: No - Suicide/Smoking/Psychosocial Hx Smoking History: Never smoked Have you smoked in the past 12 months: No Information on smoking cessation initiated: No Hx Alcohol Use: No Drug/Substance Use Hx: No Substance Use Type: None Hx Substance Use Treatment: No Review of Systems - Review of Systems Able to Perform ROS?: No (Patient non-verbal) *Physical Exam - Vital Signs Last Vital Signs Temp Pulse Resp BP Pulse Ox 99.9 F H 104 H 16 127/65 95 02/02/18 20:57 18 20:57 18 20:57 02/02/18 20:57 02/02/18 20:57 - Physical Exam General Appearance: Yes: Nourished, Disheveled HEENT: positive: Other (erythematous lesions over face) Respiratory/Chest: positive: Lungs Clear, Normal Breath Sounds. negative: Chest Tender, Respiratory Distress Cardiovascular: positive: S1, S2, Tachycardia, Irregularly Irregular Gastrointestinal/Abdominal: positive: Normal Bowel Sounds, Flat, Soft. negative : Tender Musculoskeletal: positive: Normal Inspection. negative: CVA Tenderness Extremity: positive: Normal Inspection Integumentary: positive: Warm, Diaphoresis Neurologic: positive: Respond to painful stimul, Confused, Disoriented, Other ( non verbal, not responsive to command. Responds to pain). negative: Fully Oriented, Alert, Normal Mood/Affect, Normal Response Moderate Sedation - Procedure Monitoring Vital Signs: Procedure Monitoring Vital Signs Temperature 99.9 F H 02/02/18 20:57 Pulse Rate 104 H 02/02/18 20:57 Respiratory Rate 16 02/02/18 20:57 Blood Pressure 127/65 02/02/18 20:57 O2 Sat by Pulse Oximetry (%) 95 02/02/18 20:57 ED Treatment Course - LABORATORY CBC & Chemistry Diagram: 02/02/18 23:55 02/02/18 23:55 Medical Decision Making - Medical Decision Making 02/03/18 00:06 82M fr[place] on [place], with pmh of htn, paroxysmal afib on eliquis, uti, dementia, DM, CVA with left sided hemiparesis, HLD, urinary retention with known ESBL in urine sent today for 3 episodes of vomiting. Patient looks septic: he is diaphoretic, warm, with low BP at OR and low grade fever orally. Will order septic protocol. Source is likely urinary catheter due to ar's recent findings. In addition patient has rapid afib. we will see if rate corrects from the fluids , if not, will treat with cardizem. Will likely admit to telemetry 02/03/18 00:54 Patient signed out to Dr. Jackson *DC/Admit/Observation/Transfer Diagnosis at time of Disposition: Severe sepsis - Referrals - Patient Instructions - Post Discharge Activity
[2018-02-02] MEDS ORDERED: SODIUM CHLORIDE 1,000 ML IV STA (21:52)
[2018-02-03] LABS: VENOUS PC02 37.9 mmHg (38-52); VENOUS PH 7.45 (7.32-7.42); VENOUS PO2 51.6 mmHg (28-48)
[2018-02-03 00:03] LABS: BASO % 0.3 % (0-2.0); HEMATOCRIT 40.4 % (35.4-49); HEMOGLOBIN 13.8 GM/dL (11.7-16.9); LYMPH % 3.7 % (8-40); MCH 30.2 pg (25.7-33.7); MCHC 34.2 g/dl (32.0-35.9); MEAN CELL VOLUME 88.5 fl (80-96); MEAN PLT VOLUME 9.9 fl (7.5-11.1); MONO % 6.9 % (3.8-10.2); NEUT % 89.1 % (42.8-82.8); PLATELET COUNT 171 K/MM3 (134-434); RBC 4.57 M/mm3 (4.00-5.60); RDW 15.6 % (11.9-15.9); WHITE BLOOD COUNT 20.6 K/mm3 (4.0-10.0)
[2018-02-03] MEDS ORDERED: MEROPENEM 1 GM in DEXTROSE 5%-WATER 100 ML IVPB ONE (00:21)
[2018-02-03] MEDS ORDERED: VANCOMYCIN 1 GM in D5W (PRE-DOCKED) 1,000 MG/250 ML IVPB ONE (00:21)
[2018-02-03 00:38] LABS: ALBUMIN 3.1 g/dl (3.4-5.0); ALK PHOS 103 U/L (45-117); ANION GAP 12 MMOL/L (8-16); BLOOD UREA NITROGEN 33 mg/dL (7-18); CALCIUM 9.2 mg/dL (8.5-10.1); CHLORIDE 103 mmol/L (98-107); CO2 25 mmol/L (21-32); CREATININE 1.7 mg/dL (0.55-1.3); GLUCOSE,RANDOM 108 mg/dL (74-106); POTASSIUM 4.2 mmol/L (3.5-5.1); SGOT/AST 17 U/L (15-37); SGPT/ALT 15 U/L (13-61); SODIUM 140 mmol/L (136-145); TOT PROT 6.2 g/dl (6.4-8.2)
[2018-02-03 00:41] LABS: URINE APPEARANCE CLOUDY; URINE BILIRUBIN NEGATIVE (<2.0 mg/dL); URINE COLOR DKYELLOW; URINE GLUCOSE (UA) NEGATIVE (NEGATIVE); URINE KETONE NEGATIVE (NEGATIVE)
[2018-02-03 00:42] LABS: CALCIUM OXALATE CRYSTALS RARE /hpf (NONE SEEN); URINE BACTERIA MANY /hpf (NONE SEEN); URINE LEUK ESTERASE 3+ (NEGATIVE); URINE MUCUS RARE; URINE NITRITE POSITIVE (NEGATIVE); URINE PROTEIN 2+ (NEGATIVE); URINE UROBILINOGEN NORMAL mg/dL (0.2-1.0)
[2018-02-03] MEDS ORDERED: VANCOMYCIN 1 GRAM (PRE-DOCKED) 1,000 MG/250 ML BAG IVPB ONE (01:24)
--- NOTE | 2018-02-03 02:46 | HP ---
CHIEF COMPLAINT: vomit and low BP w/ fever PCP: HISTORY OF PRESENT ILLNESS: 82 yo M PMH of vascular dementia, CVA with left sided hemiparesis, Afib on eliquis, CVA, DM, HTN, HLD, BPH, recurrent UTIs, urinary retention with ESBL e.coli (see chart) and neurogenic bladder presents from [facility] with vomiting low BP at [facility] and low grade fever orally. long-term records report that the patient experienced three episodes of vomiting earlier today. Upon presentation to the ER, the patient appeared diaphoretic. The patient is unable to provide a history secondary to his baseline dementia. BP was 90/70 today. Not on any BP or rate control medication. ER course was notable for: (1)s/p vanc, meropenem, 1 L NS (2)lactic 3.3 (3)UA 3+lek est, 183 wbc, 381 Recent Travel: PAST MEDICAL HISTORY: PAST SURGICAL HISTORY: Social History: Smoking: Alcohol: Drugs: Family History: Allergies No Known Allergies Allergy (Verified 02/02/18 20:57) HOME MEDICATIONS: Home Medications Medication Instructions Recorded Acetaminophen 1,000 mg PO DAILY 01/25/18 Alfuzosin HCl [Uroxatral] 10 mg PO DAILY 01/25/18 Apixaban [Eliquis -] 2.5 mg PO BID 01/25/18 Atorvastatin Ca [Lipitor] 40 mg PO HS 01/25/18 Docusate Sodium 200 mg PO HS 01/25/18 Donepezil HCl 10 mg PO HS 01/25/18 Escitalopram Oxalate [Lexapro -] 10 mg PO DAILY 01/25/18 Guaifenesin [Robitussin -] 100 mg PO Q6H 01/25/18 Lisinopril 5 mg PO DAILY 01/25/18 Memantine HCl [Namenda Xr] 28 mg PO DAILY 01/25/18 Polyethylene Glycol 3350 17 gm PO BID 01/25/18 Risperidone [Risperdal -] 0.5 mg PO HS 01/25/18 Sennosides [Senokot] 8.6 mg PO HS 01/25/18 metFORMIN HCL [Metformin HCl] 500 mg PO BID 01/25/18 Apixaban [Eliquis -] 5 mg PO BID tablet 01/26/18 REVIEW OF SYSTEMS as per hpi PHYSICAL EXAMINATION Vital Signs - 24 hr 02/02/18 20:57 Temperature 99.9 F H Pulse Rate 104 H Respiratory 16 Rate Blood Pressure 127/65 O2 Sat by Pulse 95 Oximetry (%) GENERAL: Alert. Oriented to person. Dementia. NAD HEAD: Normal with no signs of trauma. EYES: sclera anicteric, conjunctiva clear. No lid lag. EARS, NOSE, THROAT: nares patent, oropharynx clear without exudates. Moist mucous membranes. NECK: Normal range of motion, supple without lymphadenopathy, JVD, or masses. LUNGS: Breath sounds equal, clear to auscultation bilaterally. No wheezes, and no crackles. No accessory muscle use. HEART: Tachycardia. Irregularly irregular, normal S1 and S2 without murmur, rub or gallop. ABDOMEN: Soft, nontender, not distended, normoactive bowel sounds, no guarding, no rebound, no masses. No hepatomegaly or splenomegaly. MUSCULOSKELETAL: Normal range of motion at all joints. No bony deformities or tenderness. No CVA tenderness. UPPER EXTREMITIES: 2+ pulses, warm, well-perfused. No cyanosis. No clubbing. No peripheral edema. LOWER EXTREMITIES: 2+ pulses, warm, well-perfused. No calf tenderness. Leg edema NEUROLOGICAL: Alert. Oriented to person. Dementia. Cranial nerves II-XII intact. SKIN: Warm, dry, normal turgor, no rashes or lesions noted, normal capillary refill. Laboratory Results - last 24 hr 02/02/18 02/02/18 02/02/18 23:55 23:55 23:55 WBC 20.6 H RBC 4.57 Hgb 13.8 Hct 40.4 MCV 88.5 MCH 30.2 MCHC 34.2 RDW 15.6 Plt Count 171 MPV 9.9 Absolute Neuts (auto) 18.4 H Total Counted 100 Neutrophils % 89.1 H D Neutrophils % (Manual) 92.1 H Band Neutrophils % 1.0 Lymphocytes % 3.7 L D Lymphocytes % (Manual) 1.0 L Monocytes % 6.9 Monocytes % (Manual) 6 Eosinophils % 0.0 D Basophils % 0.3 Nucleated RBC % 0 Smudge Cells 2.0 VBG pH 7.45 H POC VBG pCO2 37.9 L POC VBG pO2 51.6 H Mixed VBG HCO3 26.1 H Sodium 140 Potassium 4.2 Chloride 103 Carbon Dioxide 25 Anion Gap 12 BUN 33 H Creatinine 1.7 H Creat Clearance w eGFR 38.78 Random Glucose 108 H Lactic Acid Calcium 9.2 Total Bilirubin 1.0 AST 17 ALT 15 Alkaline Phosphatase 103 Troponin I Total Protein 6.2 L Albumin 3.1 L Urine Color Urine Appearance Urine pH Ur Specific [place] Urine Protein Urine Glucose (UA) Urine Ketones Urine Blood Urine Nitrite Urine Bilirubin Urine Urobilinogen Ur Leukocyte Esterase Urine WBC (Auto) Urine RBC (Auto) Calcium Oxalate Crystal Urine Bacteria Urine Mucus 02/02/18 02/02/18 02/03/18 23:55 23:55 00:18 WBC RBC Hgb Hct MCV MCH MCHC RDW Plt Count MPV Absolute Neuts (auto) Total Counted Neutrophils % Neutrophils % (Manual) Band Neutrophils % Lymphocytes % Lymphocytes % (Manual) Monocytes % Monocytes % (Manual) Eosinophils % Basophils % Nucleated RBC % Smudge Cells VBG pH POC VBG pCO2 POC VBG pO2 Mixed VBG HCO3 Sodium Potassium Chloride Carbon Dioxide Anion Gap BUN Creatinine Creat Clearance w eGFR Random Glucose Lactic Acid 3.3 H* Calcium Total Bilirubin AST ALT Alkaline Phosphatase Troponin I < 0.02 Total Protein Albumin Urine Color Dkyellow Urine Appearance Cloudy Urine pH 5.0 Ur Specific [place] 1.014 Urine Protein 2+ H Urine Glucose (UA) Negative Urine Ketones Negative Urine Blood 3+ H Urine Nitrite Positive Urine Bilirubin Negative Urine Urobilinogen Normal Ur Leukocyte Esterase 3+ H Urine WBC (Auto) 183 Urine RBC (Auto) 381 Calcium Oxalate Crystal Rare Urine Bacteria Many Urine Mucus Rare ASSESSMENT/PLAN: 82 yo M PMH of vascular dementia, CVA with left sided hemiparesis, Afib on eliquis, CVA, DM, HTN, HLD, BPH, recurrent UTIs, urinary retention with ESBL e.coli (see chart) and neurogenic bladder presents from [facility] with vomiting low BP at [facility] and low grade fever orally. Sepsis 2/2 UTI - Records sent from the [facility] mentioned prior "ESBL" infection but there is no record of it here under microbiology. s/p vanc, meropenem, 1 L NS lactic 3.3 UA 3+lek est, 183 wbc, 381 c/w Vancomycin and Meropenem and confirm w/ NH about historical ESBL?. ID consult NS 100cc bolus 250cc trend lactic acid level. tylenol A-fib - HR tachy but ctl in 110s continue Eliquis will start toprol XL 25qd HLD Lipitor DM will hold the home diabetes drugs BGM AC HS ISS BPH held home meds in setting of low BP/sepsis Dementia c/w home meds FEN NS 100cc replete prn DM/low Na chol diet ppx On Eliquis for Afib Advance directives - DNR, see chart Dispo tele Visit type - Emergency Visit Emergency Visit: Yes ED Registration Date: 02/03/18 Care time: The patient presented to the Emergency Department on the above date and was hospitalized for further evaluation of their emergent condition. - New Patient This patient is new to me today: Yes Date on this admission: 02/03/18 - Critical Care Critical Care patient: No
--- NOTE | 2018-02-03 02:55 | PDOC ---
*Physical Exam - Vital Signs Last Vital Signs Temp Pulse Resp BP Pulse Ox 99.9 F H 104 H 16 127/65 95 02/02/18 20:57 02/02/18 20:57 02/02/18 20:57 02/02/18 20:57 02/02/18 20:57 ED Treatment Course - LABORATORY CBC & Chemistry Diagram: 02/05/18 06:45 02/06/18 07:45 - ADDITIONAL ORDERS Additional order review: Laboratory Results 02/03/18 02/02/18 02/02/18 00:18 23:55 23:55 VBG pH POC VBG pCO2 POC VBG pO2 Mixed VBG HCO3 Sodium Potassium Chloride Carbon Dioxide Anion Gap BUN Creatinine Creat Clearance w eGFR Random Glucose Lactic Acid 3.3 H* Calcium Total Bilirubin AST ALT Alkaline Phosphatase Troponin I < 0.02 Total Protein Albumin Urine Color Dkyellow Urine Appearance Cloudy Urine pH 5.0 Ur Specific [place] 1.014 Urine Protein 2+ H Urine Glucose (UA) Negative Urine Ketones Negative Urine Blood 3+ H Urine Nitrite Positive Urine Bilirubin Negative Urine Urobilinogen Normal Ur Leukocyte Esterase 3+ H Urine WBC (Auto) 183 Urine RBC (Auto) 381 Calcium Oxalate Crystal Rare Urine Bacteria Many Urine Mucus Rare 02/02/18 02/02/18 23:55 23:55 VBG pH 7.45 H POC VBG pCO2 37.9 L POC VBG pO2 51.6 H Mixed VBG HCO3 26.1 H Sodium 140 Potassium 4.2 Chloride 103 Carbon Dioxide 25 Anion Gap 12 BUN 33 H Creatinine 1.7 H Creat Clearance w eGFR 38.78 Random Glucose 108 H Lactic Acid Calcium 9.2 Total Bilirubin 1.0 AST 17 ALT 15 Alkaline Phosphatase 103 Troponin I Total Protein 6.2 L Albumin 3.1 L Urine Color Urine Appearance Urine pH Ur Specific [place] Urine Protein Urine Glucose (UA) Urine Ketones Urine Blood Urine Nitrite Urine Bilirubin Urine Urobilinogen Ur Leukocyte Esterase Urine WBC (Auto) Urine RBC (Auto) Calcium Oxalate Crystal Urine Bacteria Urine Mucus 02/02/18 23:55 RBC 4.57 MCV 88.5 MCHC 34.2 RDW 15.6 MPV 9.9 Neutrophils % 89.1 H D Lymphocytes % 3.7 L D Monocytes % 6.9 Eosinophils % 0.0 D Basophils % 0.3 - Medications Given in the ED: ED Medications Discontinued Medications Generic Name Dose Route Start Last Admin Trade Name Freq PRN Reason Stop Dose Admin Sodium Chloride 1,000 mls @ 1,000 mls/hr 02/02/18 21:52 02/03/18 00:13 Normal Saline - IV 02/02/18 22:51 1,000 mls/hr ASDIR STA Administration Meropenem 1 gm/ Dextrose 100 mls @ 200 mls/hr 02/03/18 00:21 02/03/18 02:16 IVPB 02/03/18 00:50 200 mls/hr ONCE ONE Administration Vancomycin HCl 1,000 mg 02/03/18 00:21 02/03/18 01:33 Vancomycin (Pre-Docked) IVPB 02/03/18 00:22 1,000 mg ONCE ONE Administration Protocol Medical Decision Making - Medical Decision Making 02/03/18 03:25 82 yo male presents from [facility] ([place], [place]) *DC/Admit/Observation/Transfer Diagnosis at time of Disposition: Severe sepsis - Discharge Dispostion Disposition: [facility] Condition at time of disposition: Stable Decision to Admit order: Yes - Prescriptions - Referrals - Patient Instructions - Post Discharge Activity
[2018-02-03 03:06] LABS: INR 1.78 (0.83-1.09); PROTHROMBIN TIME (PATIENT) 21.1 SEC (9.7-13.0)
[2018-02-03 03:09] LABS: ACTIVATED PTT 34.4 SECONDS (25.2-36.5)
[2018-02-03] MEDS ORDERED: ACETAMINOPHEN 325 MG TABLET (FP) PO PRN (03:33)
[2018-02-03] MEDS ORDERED: metoPROLOL SUCCINATE 25 MG TAB.SR.24H (FP) PO SCH ×2 (03:45→04:30)
[2018-02-03] MEDS ORDERED: SODIUM CHLORIDE 1,000 ML IV SCH ×3 (03:45→19:55)
[2018-02-03] MEDS ORDERED: SODIUM CHLORIDE 250 ML IV STA (03:49)
[2018-02-03] MEDS ORDERED: HEPARIN NA (PORCINE) 5,000 UNITS/ML 1ML VIAL SQ SCH (04:00)
[2018-02-03] MEDS ORDERED: guaiFENesin 200 MG/10 ML 10 ML UNIT-DOSE CUPS PO PRN ×2 (04:00→19:55)
--- NOTE | 2018-02-03 04:38 | PN ---
Teaching Attending Note Name of Resident: Theo Talavera ATTENDING PHYSICIAN STATEMENT I saw and evaluated the patient. I reviewed the resident's note and discussed the case with the resident. I agree with the resident's findings and plan as documented. SUBJECTIVE: Patient is an 82 year old male, with a significant past medical history of hypertension, hyperlipidemia, diabetes, atrial fibrillation (on Eliquis), prior CVA, neurogenic bladder, recurrent UTIs and vascular dementia, who presents to the ER from [facility] with vomiting. [facility] records report that the patient experienced three episodes of vomiting earlier today. Upon presentation to the ER, the patient appears diaphoretic. The patient is unable to provide a history secondary to his baseline dementia. OBJECTIVE: Alert Vital Signs Period Temp Pulse Resp BP Sys/[place] Pulse Ox Last 24 Hr 99.6 F-99.9 F 71-104 16-18 116-129/53-74 95-96 HEENT: No Jaundice, eye redness or discharge, facial rash; PERRLA, EOMI. Normocephalic, atraumatic. External ears are normal and hearing is grossly intact. No nasal discharge. Neck: Supple, nontender. No palpable adenopathy or thyromegaly. No JVD Chest: Good effort. Clear to auscultation and percussion. Heart: Tachycardia. Irregularly irregular. No S3, rub or murmur Abdomen: Not distended, soft, nontender and no HSM. No rebound or guarding. Normoactive bowel sounds. Ext: Peripheral pulses intact. Leg edema. Skin: Warm and dry. No petechiae, rash or ecchymosis. Neuro: Alert. Oriented to person. Dementia. CN 2-12 grossly intact. Sensation grossly intact in all four extremities and DTR are symmetric. Current Medications Generic Name Dose Route Start Last Admin Trade Name Freq PRN Reason Stop Dose Admin Acetaminophen 650 mg 02/03/18 03:33 Tylenol - PO Q4H PRN PAIN LEVEL 1-5 OR FEVER Apixaban 5 mg 02/03/18 10:00 Eliquis - PO BID BREANA Atorvastatin Calcium 40 mg 02/03/18 22:00 Lipitor - PO HS BREANA Docusate Sodium 200 mg 02/03/18 22:00 Colace - PO HS BREANA Donepezil HCl 10 mg 02/03/18 22:00 Aricept - PO HS BREANA Escitalopram Oxalate 10 mg 02/03/18 10:00 Lexapro - PO DAILY BREANA Guaifenesin 5 ml 02/03/18 04:00 Robitussin - PO Q6H PRN COUGH/CHEST CONGESTION Sodium Chloride 250 mls @ 250 mls/hr 02/03/18 03:49 Normal Saline - IV 02/03/18 04:48 ASDIR STA Sodium Chloride 1,000 mls @ 100 mls/hr 02/03/18 03:56 Normal Saline - IV ASDIR BREANA Insulin Aspart 1 vial 02/03/18 07:00 Novolog Vial Sliding Scale - SQ ACHS [facility] Protocol Metoprolol Succinate 25 mg 02/03/18 04:30 Toprol Xl - PO DAILY BREANA Non-Formulary Medication 28 mg 02/03/18 10:00 Memantine Hcl [Namenda Xr] PO DAILY BREANA Risperidone 0.5 mg 02/03/18 22:00 Risperdal - PO HS BREANA Senna 1 tab 02/03/18 22:00 Senna - PO HS [facility] Home Medications Medication Instructions Recorded Acetaminophen 1,000 mg PO DAILY 01/25/18 Alfuzosin HCl [Uroxatral] 10 mg PO DAILY 01/25/18 Atorvastatin Ca [Lipitor] 40 mg PO HS 01/25/18 Docusate Sodium 200 mg PO HS 01/25/18 Donepezil HCl 10 mg PO HS 01/25/18 Escitalopram Oxalate [Lexapro -] 10 mg PO DAILY 01/25/18 Guaifenesin [Robitussin -] 100 mg PO Q6H 01/25/18 Lisinopril 5 mg PO DAILY 01/25/18 Memantine HCl [Namenda Xr] 28 mg PO DAILY 01/25/18 Polyethylene Glycol 3350 17 gm PO BID 01/25/18 Risperidone [Risperdal -] 0.5 mg PO HS 01/25/18 Sennosides [Senokot] 8.6 mg PO HS 01/25/18 metFORMIN HCL [Metformin HCl] 500 mg PO BID 01/25/18 Apixaban [Eliquis -] 5 mg PO BID tablet 01/26/18 Abnormal Lab Results 02/02/18 02/02/18 02/02/18 23:55 23:55 23:55 WBC 20.6 H Absolute Neuts (auto) 18.4 H Neutrophils % 89.1 H D Neutrophils % (Manual) 92.1 H Lymphocytes % 3.7 L D Lymphocytes % (Manual) 1.0 L PT with INR INR VBG pH 7.45 H POC VBG pCO2 37.9 L POC VBG pO2 51.6 H Mixed VBG HCO3 26.1 H BUN 33 H Creatinine 1.7 H Random Glucose 108 H Lactic Acid Total Protein 6.2 L Albumin 3.1 L Urine Protein Urine Blood Ur Leukocyte Esterase 02/02/18 02/03/18 02/03/18 23:55 00:18 02:38 WBC Absolute Neuts (auto) Neutrophils % Neutrophils % (Manual) Lymphocytes % Lymphocytes % (Manual) PT with INR 21.10 H INR 1.78 H VBG pH POC VBG pCO2 POC VBG pO2 Mixed VBG HCO3 BUN Creatinine Random Glucose Lactic Acid 3.3 H* Total Protein Albumin Urine Protein 2+ H Urine Blood 3+ H Ur Leukocyte Esterase 3+ H ASSESSMENT AND PLAN: 1. Sepsis due to UTI - Records [facility] mentioned prior "ESBL" infection but there is no record of it here under microbiology. Will treat with Vancomycin and Meropenem and get more information from the [place] about historical ESBL?. Continue IV NS and trend lactic acid level. Implement comprehensive dementia care and continue Eliquis for Afib. 2. DM - For now, we will hold the home diabetes drugs and implement sliding scale insulin regimen. Provide comprehensive diabetes care with patient teaching and counseling about the importance of euglycemia, eye care and foot care. 3. DVT prophylaxis - On Eliquis for Afib 4. Advance directives - DNR
[2018-02-03] MEDS: INSULIN SLIDING SCALE (NOVOLOG) 1 VIAL SQ SCH ×4 (06:09→21:05)
[2018-02-03 06:28] LABS: BASO % 0.3 % (0-2.0); EOS % 0.2 % (0-4.5); HEMATOCRIT 40.7 % (35.4-49); HEMOGLOBIN 12.9 GM/dL (11.7-16.9); LYMPH % 5.2 % (8-40); MCH 28.2 pg (25.7-33.7); MCHC 31.6 g/dl (32.0-35.9); MEAN CELL VOLUME 89.2 fl (80-96); MEAN PLT VOLUME 9.9 fl (7.5-11.1); MONO % 6.4 % (3.8-10.2); NEUT % 87.9 % (42.8-82.8); PLATELET COUNT 166 K/MM3 (134-434); RBC 4.56 M/mm3 (4.00-5.60); RDW 15.5 % (11.9-15.9); WHITE BLOOD COUNT 17.7 K/mm3 (4.0-10.0)
[2018-02-03 08:00] LABS: ALBUMIN 2.8 g/dl (3.4-5.0); ALK PHOS 95 U/L (45-117); ANION GAP 11 MMOL/L (8-16); BILIRUBIN,TOTAL 0.9 mg/dL (0.2-1); BLOOD UREA NITROGEN 31 mg/dL (7-18); CALCIUM 8.7 mg/dL (8.5-10.1); CHLORIDE 104 mmol/L (98-107); CO2 25 mmol/L (21-32); CREATININE 1.4 mg/dL (0.55-1.3); GLUCOSE,RANDOM 123 mg/dL (74-106); MAGNESIUM 1.5 mg/dL (1.8-2.4); PHOSPHOROUS 2.6 mg/dL (2.5-4.9); POTASSIUM 3.5 mmol/L (3.5-5.1); SGOT/AST 13 U/L (15-37); SGPT/ALT 15 U/L (13-61); SODIUM 140 mmol/L (136-145); TOT PROT 5.8 g/dl (6.4-8.2)
[2018-02-03] MEDS ORDERED: APIXABAN 5 MG TABLET PO SCH (10:00)
[2018-02-03] MEDS ORDERED: ESCITALOPRAM OXALATE 10 MG TABLET (FP) PO SCH (10:00)
[2018-02-03] MEDS ORDERED: PATIENT'S OWN MEDICATION (NON-FORMULARY) (Memantine Hcl [Namenda Xr] 28 MG) PO SCH (10:00)
--- NOTE | 2018-02-03 11:24 | EKG ---
Test Reason : Blood Pressure : / mmHG Vent. Rate : 092 BPM Atrial Rate : 061 BPM P-R Int : 000 ms QRS Dur : 096 ms QT Int : 362 ms P-R-T Axes : 000 015 012 degrees QTc Int : 447 ms ATRIAL FIBRILLATION ABNORMAL ECG WHEN COMPARED WITH ECG OF 03-FEB-2018 02:13, NO SIGNIFICANT CHANGE WAS FOUND Confirmed by RIN MCCONNELL MD ([id number]) on 02/03/2018 11:24:42 AM Referred By: Confirmed By:RIN MCCONNELL MD
--- NOTE | 2018-02-03 11:26 | EKG ---
Test Reason : Blood Pressure : / mmHG Vent. Rate : 105 BPM Atrial Rate : 187 BPM P-R Int : 000 ms QRS Dur : 094 ms QT Int : 332 ms P-R-T Axes : 000 019 -09 degrees QTc Int : 438 ms ATRIAL FIBRILLATION WITH RAPID VENTRICULAR RESPONSE ABNORMAL ECG WHEN COMPARED WITH ECG OF 25-JAN-2018 15:11, NONSPECIFIC T WAVE ABNORMALITY NO LONGER EVIDENT IN LATERAL LEADS Confirmed by RIN MCCONNELL MD ([id number]) on 02/03/2018 11:25:37 AM Referred By: Confirmed By:RIN MCCONNELL MD
[2018-02-03] MEDS ORDERED: SODIUM CHLORIDE IVPB SCH (14:30)
[2018-02-03] MEDS ORDERED: ERTAPENEM SODIUM 1 GM/50 ML PRE-DOCKED IVPB SCH (14:30)
[2018-02-03] MEDS ORDERED: ERTAPENEM SODIUM 1 GM in SODIUM CHLORIDE 100 ML IVPB SCH ×2 (14:30→14:45)
[2018-02-03] MEDS ORDERED: ERTAPENEM SODIUM IVPB SCH (14:30)
--- NOTE | 2018-02-03 14:30 | PN ---
Teaching Attending Note Name of Resident: David Sadler ATTENDING PHYSICIAN STATEMENT I saw and evaluated the patient. I reviewed the resident's note and discussed the case with the resident. I agree with the resident's findings and plan as documented with exceptions below. SUBJECTIVE: patient seen and examined. ROS limited by dementia, reports being hungry, asking to eat, denies pain or complaints. OBJECTIVE: Vital Signs Period Temp Pulse Resp BP Sys/[place] Cruz Pulse Ox Last 24 Hr 98.1 F-99.9 F 71-104 12-18 105-141/53-75 95-97 Intake & Output 01/31/18 02/01/18 02/02/18 02/03/18 23:59 23:59 23:59 23:59 Output Total 325 Balance -325 Weight 140 lb General: lying in bed, oriented to self only, no acute distress Chest: limited exam given lack of co-operation, no rales or wheezing appreciated , poor effort Abdomen:Soft, NT, ND, no suprapubic or CVA tenderness Extremities: no edema Home Medications Medication Instructions Recorded Acetaminophen 1,000 mg PO DAILY 01/25/18 Alfuzosin HCl [Uroxatral] 10 mg PO DAILY 01/25/18 Atorvastatin Ca [Lipitor] 40 mg PO HS 01/25/18 Docusate Sodium 200 mg PO HS 01/25/18 Donepezil HCl 10 mg PO HS 01/25/18 Escitalopram Oxalate [Lexapro -] 10 mg PO DAILY 01/25/18 Guaifenesin [Robitussin -] 100 mg PO Q6H 01/25/18 Lisinopril 5 mg PO DAILY 01/25/18 Memantine HCl [Namenda Xr] 28 mg PO DAILY 01/25/18 Polyethylene Glycol 3350 17 gm PO BID 01/25/18 Risperidone [Risperdal -] 0.5 mg PO HS 01/25/18 Sennosides [Senokot] 8.6 mg PO HS 01/25/18 metFORMIN HCL [Metformin HCl] 500 mg PO BID 01/25/18 Apixaban [Eliquis -] 5 mg PO BID tablet 01/26/18 Active Medications Acetaminophen (Tylenol -) 650 mg PO Q4H PRN PRN Reason: PAIN LEVEL 1-5 OR FEVER Apixaban (Eliquis -) 5 mg PO BID BREANA Last Admin: 02/03/18 10:30 Dose: 5 mg Atorvastatin Calcium (Lipitor -) 40 mg PO HS BREANA Docusate Sodium (Colace -) 200 mg PO HS BREANA Donepezil HCl (Aricept -) 10 mg PO HS BREANA Ertapenem (Invanz (Pre-Docked)) 1 gm IVPB DAILY BREANA Escitalopram Oxalate (Lexapro -) 10 mg PO DAILY [facility] Last Admin: 02/03/18 10:30 Dose: 10 mg Guaifenesin (Robitussin -) 5 ml PO Q6H PRN PRN Reason: COUGH/CHEST CONGESTION Sodium Chloride (Normal Saline -) 1,000 mls @ 100 mls/hr IV ASDIR [facility] Last Admin: 02/03/18 05:47 Dose: 100 mls/hr Insulin Aspart (Novolog Vial Sliding Scale -) 1 vial SQ ACHS [facility]; Protocol Last Admin: 02/03/18 10:51 Dose: Not Given Metoprolol Succinate (Toprol Xl -) 25 mg PO DAILY [facility] Last Admin: 02/03/18 05:48 Dose: Not Given Non-Formulary Medication (Memantine Hcl [Namenda Xr]) 28 mg PO DAILY [facility] Risperidone (Risperdal -) 0.5 mg PO HS BREANA Senna (Senna -) 1 tab PO HS [facility] Laboratory Results - last 24 hr 02/02/18 02/02/18 02/02/18 23:55 23:55 23:55 WBC 20.6 H RBC 4.57 Hgb 13.8 Hct 40.4 MCV 88.5 MCH 30.2 MCHC 34.2 RDW 15.6 Plt Count 171 MPV 9.9 Absolute Neuts (auto) 18.4 H Total Counted 100 Neutrophils % 89.1 H D Neutrophils % (Manual) 92.1 H Band Neutrophils % 1.0 Lymphocytes % 3.7 L D Lymphocytes % (Manual) 1.0 L Monocytes % 6.9 Monocytes % (Manual) 6 Eosinophils % 0.0 D Basophils % 0.3 Nucleated RBC % 0 Smudge Cells 2.0 PT with INR INR PTT (Actin FS) VBG pH 7.45 H POC VBG pCO2 37.9 L POC VBG pO2 51.6 H Mixed VBG HCO3 26.1 H Sodium 140 Potassium 4.2 Chloride 103 Carbon Dioxide 25 Anion Gap 12 BUN 33 H Creatinine 1.7 H Creat Clearance w eGFR 38.78 POC Glucometer Random Glucose 108 H Lactic Acid Calcium 9.2 Phosphorus Magnesium Total Bilirubin 1.0 AST 17 ALT 15 Alkaline Phosphatase 103 Troponin I Total Protein 6.2 L Albumin 3.1 L Urine Color Urine Appearance Urine pH Ur Specific [place] Urine Protein Urine Glucose (UA) Urine Ketones Urine Blood Urine Nitrite Urine Bilirubin Urine Urobilinogen Ur Leukocyte Esterase Urine WBC (Auto) Urine RBC (Auto) Calcium Oxalate Crystal Urine Bacteria Urine Mucus 02/02/18 02/02/18 02/03/18 23:55 23:55 00:18 WBC RBC Hgb Hct MCV MCH MCHC RDW Plt Count MPV Absolute Neuts (auto) Total Counted Neutrophils % Neutrophils % (Manual) Band Neutrophils % Lymphocytes % Lymphocytes % (Manual) Monocytes % Monocytes % (Manual) Eosinophils % Basophils % Nucleated RBC % Smudge Cells PT with INR INR PTT (Actin FS) VBG pH POC VBG pCO2 POC VBG pO2 Mixed VBG HCO3 Sodium Potassium Chloride Carbon Dioxide Anion Gap BUN Creatinine Creat Clearance w eGFR POC Glucometer Random Glucose Lactic Acid 3.3 H* Calcium Phosphorus Magnesium Total Bilirubin AST ALT Alkaline Phosphatase Troponin I < 0.02 Total Protein Albumin Urine Color Dkyellow Urine Appearance Cloudy Urine pH 5.0 Ur Specific [place] 1.014 Urine Protein 2+ H Urine Glucose (UA) Negative Urine Ketones Negative Urine Blood 3+ H Urine Nitrite Positive Urine Bilirubin Negative Urine Urobilinogen Normal Ur Leukocyte Esterase 3+ H Urine WBC (Auto) 183 Urine RBC (Auto) 381 Calcium Oxalate Crystal Rare Urine Bacteria Many Urine Mucus Rare 02/03/18 02/03/18 02/03/18 02:38 04:20 06:01 WBC RBC Hgb Hct MCV MCH MCHC RDW Plt Count MPV Absolute Neuts (auto) Total Counted Neutrophils % Neutrophils % (Manual) Band Neutrophils % Lymphocytes % Lymphocytes % (Manual) Monocytes % Monocytes % (Manual) Eosinophils % Basophils % Nucleated RBC % Smudge Cells PT with INR 21.10 H INR 1.78 H PTT (Actin FS) 34.4 VBG pH POC VBG pCO2 POC VBG pO2 Mixed VBG HCO3 Sodium Potassium Chloride Carbon Dioxide Anion Gap BUN Creatinine Creat Clearance w eGFR POC Glucometer [phone] Random Glucose Lactic Acid 2.8 H* Calcium Phosphorus Magnesium Total Bilirubin AST ALT Alkaline Phosphatase Troponin I Total Protein Albumin Urine Color Urine Appearance Urine pH Ur Specific [place] Urine Protein Urine Glucose (UA) Urine Ketones Urine Blood Urine Nitrite Urine Bilirubin Urine Urobilinogen Ur Leukocyte Esterase Urine WBC (Auto) Urine RBC (Auto) Calcium Oxalate Crystal Urine Bacteria Urine Mucus 02/03/18 02/03/18 02/03/18 06:02 06:02 08:30 WBC 17.7 H RBC 4.56 Hgb 12.9 Hct 40.7 MCV 89.2 MCH 28.2 MCHC 31.6 L RDW 15.5 Plt Count 166 MPV 9.9 Absolute Neuts (auto) 15.6 H Total Counted Neutrophils % 87.9 H Neutrophils % (Manual) Band Neutrophils % Lymphocytes % 5.2 L D Lymphocytes % (Manual) Monocytes % 6.4 Monocytes % (Manual) Eosinophils % 0.2 D Basophils % 0.3 Nucleated RBC % 0 Smudge Cells PT with INR INR PTT (Actin FS) VBG pH POC VBG pCO2 POC VBG pO2 Mixed VBG HCO3 Sodium 140 Potassium 3.5 Chloride 104 Carbon Dioxide 25 Anion Gap 11 BUN 31 H Creatinine 1.4 H Creat Clearance w eGFR 48.52 POC Glucometer Random Glucose 123 H Lactic Acid 1.3 Calcium 8.7 Phosphorus 2.6 Magnesium 1.5 L Total Bilirubin 0.9 AST 13 L ALT 15 Alkaline Phosphatase 95 Troponin I Total Protein 5.8 L Albumin 2.8 L Urine Color Urine Appearance Urine pH Ur Specific [place] Urine Protein Urine Glucose (UA) Urine Ketones Urine Blood Urine Nitrite Urine Bilirubin Urine Urobilinogen Ur Leukocyte Esterase Urine WBC (Auto) Urine RBC (Auto) Calcium Oxalate Crystal Urine Bacteria Urine Mucus 02/03/18 10:40 WBC RBC Hgb Hct MCV MCH MCHC RDW Plt Count MPV Absolute Neuts (auto) Total Counted Neutrophils % Neutrophils % (Manual) Band Neutrophils % Lymphocytes % Lymphocytes % (Manual) Monocytes % Monocytes % (Manual) Eosinophils % Basophils % Nucleated RBC % Smudge Cells PT with INR INR PTT (Actin FS) VBG pH POC VBG pCO2 POC VBG pO2 Mixed VBG HCO3 Sodium Potassium Chloride Carbon Dioxide Anion Gap BUN Creatinine Creat Clearance w eGFR POC Glucometer [phone] Random Glucose Lactic Acid Calcium Phosphorus Magnesium Total Bilirubin AST ALT Alkaline Phosphatase Troponin I Total Protein Albumin Urine Color Urine Appearance Urine pH Ur Specific [place] Urine Protein Urine Glucose (UA) Urine Ketones Urine Blood Urine Nitrite Urine Bilirubin Urine Urobilinogen Ur Leukocyte Esterase Urine WBC (Auto) Urine RBC (Auto) Calcium Oxalate Crystal Urine Bacteria Urine Mucus CXR- no acute process ASSESSMENT AND PLAN: 82 yom with PMHx of vascular dementia NHR, Afib on eliquis, CVA, DM, HTN, HLD, BPH, and neurogenic bladder sent with vomiting/hypotension/low grade fever, found with UTI with sepsis -Sepsis secondary to UTI, likely from underlying neurogenic bladder/r/o obstructive process -Lactic acidosis, from above/hypovolumia -BERNIE, from sepsis/hypovolumia, r/o obstructive process -Atrial fibrillation on dementia -CVA -NIDDM -HTN -HLD -BPH -Vascular dementia Plan: ?h/o ESBL UTi. Retrieve more info from [facility]. Urine cultures sent, ertapenem day 1 for now. ID input. S/p arriola cath placement on 02/01 at [facility]. Renal/Bladder US. Gentle hydration, monitor renal function. h/o BPH, ?not on flomax/finasteride, follow up imaging for now Continue eliquis/metoprolol ISS, diabetic diet. Hold metformin. Continue statin/risperidone. DVTPPX with eliquis Code status:DNR on [facility] charts, confirm with HCP Dispo pending clinical improvement in 48 hours if improves.
--- NOTE | 2018-02-03 15:21 | PN ---
Physical Exam: SUBJECTIVE: Patient seen and examined at bedside this morning. He is minimally responsive, however responds to and follows commands. He does not endorse any complaints. Discussed case with patient's daughter, and power of uke operator Bhavya Cash. She informs me the patient had similar presentation with "resistant" urinary tract infection one month ago, treated at [facility]. Goals of care discussed. OBJECTIVE: Vital Signs Period Temp Pulse Resp BP Sys/De La Cruz Pulse Ox Last 24 Hr 98.1 F-99.9 F 71-117 -18 105-146/53-90 95-98 GENERAL: The patient is awake, oriented to self only, in no acute distress. HEENT: Normocephalic, atraumatic. PERRL, sclera anicteric, conjunctiva clear. Dry mucous membranes LUNGS: Poor inspiratory effort, and air entry B/L. No wheezes, crackles auscultated. No accessory muscle use HEART: Irregular rate and rhythm, S1, S2 without murmur, rub or gallop. ABDOMEN: Obese. Soft, nontender, nondistended. no guarding, no rebound tenderness. No hepatosplenomegaly appreciated. Marie catheter draining clear, yellow urine. Insertion site visualized without bleeding, drainage, or erythema. EXTREMITIES: 2+ radial and dorsalis pedis pulses b/l. pulses, Warm, well- perfused. 1+ pitting edema B/L lower extremities. NEUROLOGICAL: Freely moves all four extremities. Good muscular tone b/l upper and lower extremities. SKIN: Warm, dry. Laboratory Results - last 24 hr 02/02/18 02/02/18 02/02/18 23:55 23:55 23:55 WBC 20.6 H RBC 4.57 Hgb 13.8 Hct 40.4 MCV 88.5 MCH 30.2 MCHC 34.2 RDW 15.6 Plt Count 171 MPV 9.9 Absolute Neuts (auto) 18.4 H Total Counted 100 Neutrophils % 89.1 H D Neutrophils % (Manual) 92.1 H Band Neutrophils % 1.0 Lymphocytes % 3.7 L D Lymphocytes % (Manual) 1.0 L Monocytes % 6.9 Monocytes % (Manual) 6 Eosinophils % 0.0 D Basophils % 0.3 Nucleated RBC % 0 Smudge Cells 2.0 PT with INR INR PTT (Actin FS) VBG pH 7.45 H POC VBG pCO2 37.9 L POC VBG pO2 51.6 H Mixed VBG HCO3 26.1 H Sodium 140 Potassium 4.2 Chloride 103 Carbon Dioxide 25 Anion Gap 12 BUN 33 H Creatinine 1.7 H Creat Clearance w eGFR 38.78 POC Glucometer Random Glucose 108 H Lactic Acid Calcium 9.2 Phosphorus Magnesium Total Bilirubin 1.0 AST 17 ALT 15 Alkaline Phosphatase 103 Troponin I Total Protein 6.2 L Albumin 3.1 L Urine Color Urine Appearance Urine pH Ur Specific Garland Urine Protein Urine Glucose (UA) Urine Ketones Urine Blood Urine Nitrite Urine Bilirubin Urine Urobilinogen Ur Leukocyte Esterase Urine WBC (Auto) Urine RBC (Auto) Calcium Oxalate Crystal Urine Bacteria Urine Mucus 02/02/18 02/02/18 02/03/18 23:55 23:55 00:18 WBC RBC Hgb Hct MCV MCH MCHC RDW Plt Count MPV Absolute Neuts (auto) Total Counted Neutrophils % Neutrophils % (Manual) Band Neutrophils % Lymphocytes % Lymphocytes % (Manual) Monocytes % Monocytes % (Manual) Eosinophils % Basophils % Nucleated RBC % Smudge Cells PT with INR INR PTT (Actin FS) VBG pH POC VBG pCO2 POC VBG pO2 Mixed VBG HCO3 Sodium Potassium Chloride Carbon Dioxide Anion Gap BUN Creatinine Creat Clearance w eGFR POC Glucometer Random Glucose Lactic Acid 3.3 H* Calcium Phosphorus Magnesium Total Bilirubin AST ALT Alkaline Phosphatase Troponin I < 0.02 Total Protein Albumin Urine Color Dkyellow Urine Appearance Cloudy Urine pH 5.0 Ur Specific Garland 1.014 Urine Protein 2+ H Urine Glucose (UA) Negative Urine Ketones Negative Urine Blood 3+ H Urine Nitrite Positive Urine Bilirubin Negative Urine Urobilinogen Normal Ur Leukocyte Esterase 3+ H Urine WBC (Auto) 183 Urine RBC (Auto) 381 Calcium Oxalate Crystal Rare Urine Bacteria Many Urine Mucus Rare 02/03/18 02/03/18 02/03/18 02:38 04:20 06:01 WBC RBC Hgb Hct MCV MCH MCHC RDW Plt Count MPV Absolute Neuts (auto) Total Counted Neutrophils % Neutrophils % (Manual) Band Neutrophils % Lymphocytes % Lymphocytes % (Manual) Monocytes % Monocytes % (Manual) Eosinophils % Basophils % Nucleated RBC % Smudge Cells PT with INR 21.10 H INR 1.78 H PTT (Actin FS) 34.4 VBG pH POC VBG pCO2 POC VBG pO2 Mixed VBG HCO3 Sodium Potassium Chloride Carbon Dioxide Anion Gap BUN Creatinine Creat Clearance w eGFR POC Glucometer [phone] Random Glucose Lactic Acid 2.8 H* Calcium Phosphorus Magnesium Total Bilirubin AST ALT Alkaline Phosphatase Troponin I Total Protein Albumin Urine Color Urine Appearance Urine pH Ur Specific Garland Urine Protein Urine Glucose (UA) Urine Ketones Urine Blood Urine Nitrite Urine Bilirubin Urine Urobilinogen Ur Leukocyte Esterase Urine WBC (Auto) Urine RBC (Auto) Calcium Oxalate Crystal Urine Bacteria Urine Mucus 02/03/18 02/03/18 02/03/18 06:02 06:02 08:30 WBC 17.7 H RBC 4.56 Hgb 12.9 Hct 40.7 MCV 89.2 MCH 28.2 MCHC 31.6 L RDW 15.5 Plt Count 166 MPV 9.9 Absolute Neuts (auto) 15.6 H Total Counted Neutrophils % 87.9 H Neutrophils % (Manual) Band Neutrophils % Lymphocytes % 5.2 L D Lymphocytes % (Manual) Monocytes % 6.4 Monocytes % (Manual) Eosinophils % 0.2 D Basophils % 0.3 Nucleated RBC % 0 Smudge Cells PT with INR INR PTT (Actin FS) VBG pH POC VBG pCO2 POC VBG pO2 Mixed VBG HCO3 Sodium 140 Potassium 3.5 Chloride 104 Carbon Dioxide 25 Anion Gap 11 BUN 31 H Creatinine 1.4 H Creat Clearance w eGFR 48.52 POC Glucometer Random Glucose 123 H Lactic Acid 1.3 Calcium 8.7 Phosphorus 2.6 Magnesium 1.5 L Total Bilirubin 0.9 AST 13 L ALT 15 Alkaline Phosphatase 95 Troponin I Total Protein 5.8 L Albumin 2.8 L Urine Color Urine Appearance Urine pH Ur Specific Garland Urine Protein Urine Glucose (UA) Urine Ketones Urine Blood Urine Nitrite Urine Bilirubin Urine Urobilinogen Ur Leukocyte Esterase Urine WBC (Auto) Urine RBC (Auto) Calcium Oxalate Crystal Urine Bacteria Urine Mucus 02/03/18 10:40 WBC RBC Hgb Hct MCV MCH MCHC RDW Plt Count MPV Absolute Neuts (auto) Total Counted Neutrophils % Neutrophils % (Manual) Band Neutrophils % Lymphocytes % Lymphocytes % (Manual) Monocytes % Monocytes % (Manual) Eosinophils % Basophils % Nucleated RBC % Smudge Cells PT with INR INR PTT (Actin FS) VBG pH POC VBG pCO2 POC VBG pO2 Mixed VBG HCO3 Sodium Potassium Chloride Carbon Dioxide Anion Gap BUN Creatinine Creat Clearance w eGFR POC Glucometer [phone] Random Glucose Lactic Acid Calcium Phosphorus Magnesium Total Bilirubin AST ALT Alkaline Phosphatase Troponin I Total Protein Albumin Urine Color Urine Appearance Urine pH Ur Specific Gar[place] Urine Protein Urine Glucose (UA) Urine Ketones Urine Blood Urine Nitrite Urine Bilirubin Urine Urobilinogen Ur Leukocyte Esterase Urine WBC (Auto) Urine RBC (Auto) Calcium Oxalate Crystal Urine Bacteria Urine Mucus Active Medications Generic Name Dose Route Start Last Admin Trade Name Freq PRN Reason Stop Dose Admin Acetaminophen 650 mg 02/03/18 03:33 Tylenol - PO Q4H PRN PAIN LEVEL 1-5 OR FEVER Apixaban 5 mg 02/03/18 10:00 02/03/18 10:30 Eliquis - PO 5 mg BID BREANA Administration Atorvastatin Calcium 40 mg 02/03/18 22:00 Lipitor - PO HS [facility] Docusate Sodium 200 mg 02/03/18 22:00 Colace - PO HS BREANA Donepezil HCl 10 mg 02/03/18 22:00 Aricept - PO HS [facility] Escitalopram Oxalate 10 mg 02/03/18 10:00 02/03/18 10:30 Lexapro - PO 10 mg DAILY BREANA Administration Guaifenesin 5 ml 02/03/18 04:00 Robitussin - PO Q6H PRN COUGH/CHEST CONGESTION Sodium Chloride 1,000 mls @ 100 mls/hr 02/03/18 03:56 02/03/18 05:47 Normal Saline - IV 100 mls/hr ASDIR BREANA Administration Ertapenem 1 gm/ Sodium 50 mls @ 100 mls/hr 02/03/18 14:45 Chloride IVPB DAILY [facility] Insulin Aspart 1 vial 02/03/18 07:00 02/03/18 10:51 Novolog Vial Sliding Scale - SQ Not Given ACHS [facility] Protocol Metoprolol Succinate 25 mg 02/03/18 04:30 02/03/18 05:48 Toprol Xl - PO Not Given DAILY [facility] Non-Formulary Medication 28 mg 02/03/18 10:00 Memantine Hcl [Namenda Xr] PO DAILY [facility] Risperidone 0.5 mg 02/03/18 22:00 Risperdal - PO [facility] Senna 1 tab 02/03/18 22:00 Senna - PO [facility] ASSESSMENT/PLAN: Patient is an 82 year old male with history of recurrent (and ESBL e. coli) UTI , vascular dementia, CVA, Afib on eliquis, diabetes mellitus, hypertension, hyperlipidemia, benign prostatic hyperplasia, presents from [facility] for UTI. Sepsis secondary to UTI -History of ESBL e.coli last treated 12/2017 at [facility] -Patient received vancomycin and meropenem in ED -Lactic acid 3.3 -> 2.8 -> 1.3 -IV normal saline at 100mL/ hour -Begin Ertapenem 1 gram IV daily -F/U urine culture -F/U blood cultures -F/U ID consult (Dr. Hutchinson) -F/U renal and bladder US Afib -Eliquis 5mg PO BID -Rate control with metoprolol 25mg PO Diabetes mellitus -Insulin sliding scale ACHS -BGM ACHS Hyperlipidemia -Atorvastatin 40mg PO QHS Dementia -Aricept 10mg PO QHS -Memantadine 28mg PO daily -Risperidone 0.5mg PO daily -Lexapro 10mg PO daily FEN -IV normal saline at 100mL/ hour -Follow CMP -Diabetic, low sodium cholesterol diet Prophylaxis -Patient is on Eliquis 5mg PO BID for Afib Disposition -Transfer to medical-surgical floor for care. Advance directives: Patient is DNR/ DNI. Advanced directives in patient's physician in chart, and verbally confirmed with Power of Track Grinder Operator (daughter) Bhavya Cash. Visit type - Emergency Visit Emergency Visit: Yes ED Registration Date: 02/03/18 Care time: The patient presented to the Emergency Department on the above date and was hospitalized for further evaluation of their emergent condition. - New Patient This patient is new to me today: Yes Date on this admission: 02/03/18 - Critical Care Critical Care patient: No - Discharge Referral Referred to [facility] Med [facility].C[facility] No
--- NOTE | 2018-02-03 16:16 | CON.ID ---
Consult Consult Specialty:: infectious diseases Referred by:: Reason for Consultation:: sepsis,uti - History of Present Illness Chief Complaint: unable to give hisotry History of Present Illness: patient from senior living demented ,unable to give history which is taken from the chart 82 yo M PMH of vascular dementia, CVA with left sided hemiparesis, Afib on eliquis, CVA, DM, HTN, HLD, BPH, recurrent UTIs, urinary retention with ESBL e.coli and neurogenic bladder presents from [facility] with vomiting low BP at ID and low grade fever orally. halfway records report that the patient experienced three episodes of vomiting earlier today. Upon presentation to the ER, the patient appeared diaphoretic. The patient is unable to provide a history secondary to his baseline dementia. 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 Cardio/Vascular: Yes: HTN, Hyperlipdemia - Alcohol/Substance Use Hx Alcohol Use: No - Smoking History Smoking history: Never smoked Have you smoked in the past 12 months: No Home Medications - Allergies Allergies/Adverse Reactions: Allergies Allergy/AdvReac Type Severity Reaction Status Date / Time No Known Allergies Allergy Verified 02/02/18 20:57 - Home Medications Home Medications: Ambulatory Orders Acetaminophen 1,000 mg PO DAILY 01/25/18 Alfuzosin HCl [Uroxatral] 10 mg PO DAILY 01/25/18 Atorvastatin Ca [Lipitor] 40 mg PO HS 01/25/18 Docusate Sodium 200 mg PO HS 01/25/18 Donepezil HCl 10 mg PO HS 01/25/18 Escitalopram Oxalate [Lexapro -] 10 mg PO DAILY 01/25/18 Guaifenesin [Robitussin -] 100 mg PO Q6H 01/25/18 Lisinopril 5 mg PO DAILY 01/25/18 Memantine HCl [Namenda Xr] 28 mg PO DAILY 01/25/18 Polyethylene Glycol 3350 17 gm PO BID 01/25/18 Risperidone [Risperdal -] 0.5 mg PO HS 01/25/18 Sennosides [Senokot] 8.6 mg PO HS 01/25/18 metFORMIN HCL [Metformin HCl] 500 mg PO BID 01/25/18 Apixaban [Eliquis -] 5 mg PO BID tablet 01/26/18 Review of Systems Unable to obtain ROS, reason: unable to obtain Physical Exam Vital Signs: Vital Signs Temperature 98.7 F 02/03/18 15:23 Pulse Rate 102 H 02/03/18 15:23 Respiratory Rate 20 02/03/18 15:23 Blood Pressure 146/71 02/03/18 15:23 O2 Sat by Pulse Oximetry (%) 97 02/03/18 15:23 Constitutional: Yes: Well Nourished, Calm Cardiovascular: Yes: Pulse Irregular Respiratory: Yes: Regular Gastrointestinal: Yes: Normal Bowel Sounds, Soft Musculoskeletal: Yes: WNL Extremities: Yes: WNL Neurological: Yes: Alert, Oriented (to self) Psychiatric: Yes: Other Labs: CBC, BMP 02/03/18 06:02 02/03/18 06:02 Imaging - Results Chest X-ray: Report Reviewed, Image Reviewed Ultrasound: Report Reviewed, Image Reviewed Assessment/Plan 82 yo M PMH of vascular dementia, CVA with left sided hemiparesis, Afib on eliquis, CVA, DM, HTN, HLD, BPH, recurrent UTIs, urinary retention with ESBL e.coli and neurogenic bladder presents from [facility] with vomiting low BP at ID and low grade fever orally. Sepsis A-fib HLD DM BPH Dementia patient with history of esbl now started on ertapenam plan we will continue current abx hydration await for all cx reports rest as per the team
[2018-02-03] MEDS: ERTAPENEM SODIUM 1 GM in SODIUM CHLORIDE 50 ML IVPB SCH (17:12)
[2018-02-03] MEDS: risperiDONE 0.5 MG TABLET (FP) PO SCH (21:04)
[2018-02-03] MEDS: ATORVASTATIN CA 40 MG TABLET (FP) PO SCH (21:04)
[2018-02-03] MEDS: DONEPEZIL HCL 10 MG TABLET (FP) PO SCH (21:04)
[2018-02-03] MEDS: DOCUSATE SODIUM 100 MG CAPSULE (FP) PO SCH (21:04)
[2018-02-03] MEDS: APIXABAN 5 MG TABLET PO SCH (21:04)
[2018-02-03] MEDS: SENNOSIDES 8.6MG TABLET (FP) PO SCH (21:04)
[2018-02-03] MEDS: ACETAMINOPHEN 325 MG TABLET (FP) PO PRN (21:05)
[2018-02-03] MEDS ORDERED: risperiDONE 0.5 MG TABLET (FP) PO SCH (22:00)
[2018-02-03] MEDS ORDERED: DONEPEZIL HCL 10 MG TABLET (FP) PO SCH (22:00)
[2018-02-03] MEDS ORDERED: SENNOSIDES 8.6MG TABLET (FP) PO SCH (22:00)
[2018-02-03] MEDS ORDERED: DOCUSATE SODIUM 100 MG CAPSULE (FP) PO SCH (22:00)
[2018-02-03] MEDS ORDERED: ATORVASTATIN CA 40 MG TABLET (FP) PO SCH (22:00)
[2018-02-04 01:45] VITALS: BMI 43.0
[2018-02-04] MEDS ORDERED: SODIUM CHLORIDE 1,000 ML IV SCH (03:07)
[2018-02-04] MEDS: INSULIN SLIDING SCALE (NOVOLOG) 1 VIAL SQ SCH ×4 (06:10→21:59)
[2018-02-04 07:58] LABS: HEMATOCRIT 37.9 % (35.4-49); HEMOGLOBIN 12.2 GM/dL (11.7-16.9); MCH 28.8 pg (25.7-33.7); MCHC 32.2 g/dl (32.0-35.9); MEAN CELL VOLUME 89.6 fl (80-96); PLATELET COUNT 159 K/MM3 (134-434); RBC 4.23 M/mm3 (4.00-5.60); RDW 15.9 % (11.9-15.9)
[2018-02-04 08:26] LABS: ALBUMIN 2.4 g/dl (3.4-5.0); ALK PHOS 85 U/L (45-117); ANION GAP 6 MMOL/L (8-16); BILIRUBIN,TOTAL 0.7 mg/dL (0.2-1); BLOOD UREA NITROGEN 19 mg/dL (7-18); CHLORIDE 106 mmol/L (98-107); CO2 29 mmol/L (21-32); CREATININE 0.9 mg/dL (0.55-1.3); GLUCOSE,RANDOM 99 mg/dL (74-106); MAGNESIUM 1.4 mg/dL (1.8-2.4); PHOSPHOROUS 2.6 mg/dL (2.5-4.9); POTASSIUM 3.3 mmol/L (3.5-5.1); SGOT/AST 12 U/L (15-37); SGPT/ALT 12 U/L (13-61); SODIUM 142 mmol/L (136-145); TOT PROT 5.2 g/dl (6.4-8.2)
[2018-02-04] MEDS ORDERED: POTASSIUM CHLORIDE ORAL LIQUID 20 MEQ/15 ML PO ONE (09:00)
[2018-02-04] MEDS ORDERED: PT OWN MED DRAWER 7, Y5N ONE ×2 (09:19→21:45)
[2018-02-04] MEDS: ESCITALOPRAM OXALATE 10 MG TABLET (FP) PO SCH (09:45)
[2018-02-04] MEDS: metoPROLOL SUCCINATE 25 MG TAB.SR.24H (FP) PO SCH (09:45)
[2018-02-04] MEDS: APIXABAN 5 MG TABLET PO SCH ×2 (09:45→21:55)
[2018-02-04] MEDS ORDERED: ERTAPENEM SODIUM 1 GM in SODIUM CHLORIDE 100 ML IVPB SCH (10:00)
[2018-02-04] MEDS ORDERED: PATIENT'S OWN MEDICATION (NON-FORMULARY) (Memantine Hcl [Namenda Xr] 28 MG) PO SCH (10:00)
[2018-02-04] MEDS ORDERED: MAGNESIUM SULF 50% (8.12 MEQ/2 ML-1 GM VIAL) IVPB ONE (12:00)
--- NOTE | 2018-02-04 12:19 | PN ---
Physical Exam: SUBJECTIVE: Patient seen and examined. No acute events overnight. OBJECTIVE: Vital Signs Period Temp Pulse Resp BP Sys/De La Cruz Pulse Ox Last 24 Hr 97.7 F-98.7 F 85-117 16-20 121-151/68-101 97-98 GENERAL: A/o x 1, oriented to self only, in no acute distress. HEENT: Normocephalic, atraumatic. PERRL, sclera anicteric, conjunctiva clear. Dry mucous membranes LUNGS: Poor inspiratory effort, and air entry B/L. No wheezes, crackles auscultated. No accessory muscle use HEART: Irregular rate and rhythm, S1, S2 without murmur, rub or gallop. ABDOMEN: Obese. Soft, nontender, nondistended. no guarding EXTREMITIES: 2+ radial and dorsalis pedis pulses b/l. pulses, Warm, well- perfused. 1+ pitting edema B/L lower extremities. NEUROLOGICAL: Freely moves all four extremities. Good muscular tone b/l upper and lower extremities. Laboratory Results - last 24 hr 02/03/18 02/03/18 02/04/18 17:11 20:44 05:43 WBC RBC Hgb Hct MCV MCH MCHC RDW Plt Count MPV Sodium Potassium Chloride Carbon Dioxide Anion Gap BUN Creatinine Creat Clearance w eGFR POC Glucometer [phone] 106 Random Glucose Calcium Phosphorus Magnesium Total Bilirubin AST ALT Alkaline Phosphatase Total Protein Albumin 02/04/18 02/04/18 02/04/18 06:30 06:30 11:20 WBC 10.0 RBC 4.23 Hgb 12.2 Hct 37.9 MCV 89.6 MCH 28.8 MCHC 32.2 RDW 15.9 Plt Count 159 MPV 10.0 Sodium 142 Potassium 3.3 L Chloride 106 Carbon Dioxide 29 Anion Gap 6 L BUN 19 H Creatinine 0.9 Creat Clearance w eGFR > 60 POC Glucometer 97 Random Glucose 99 Calcium 8.0 L Phosphorus 2.6 Magnesium 1.4 L Total Bilirubin 0.7 AST 12 L ALT 12 L Alkaline Phosphatase 85 Total Protein 5.2 L Albumin 2.4 L Active Medications Generic Name Dose Route Start Last Admin Trade Name Freq PRN Reason Stop Dose Admin Acetaminophen 650 mg 02/03/18 19:55 02/03/18 21:05 Tylenol - PO 650 mg Q4H PRN Administration PAIN LEVEL 1-5 Apixaban 5 mg 02/03/18 22:00 02/04/18 09:45 Eliquis - PO 5 mg BID BREANA Administration Atorvastatin Calcium 40 mg 02/03/18 22:00 02/03/18 21:04 Lipitor - PO 40 mg HS BREANA Administration Docusate Sodium 200 mg 02/03/18 22:00 02/03/18 21:04 Colace - PO 200 mg HS BREANA Administration Donepezil HCl 10 mg 02/03/18 22:00 02/03/18 21:04 Aricept - PO 10 mg HS BREANA Administration Escitalopram Oxalate 10 mg 02/04/18 10:00 02/04/18 09:45 Lexapro - PO 10 mg DAILY BREANA Administration Guaifenesin 5 ml 02/03/18 19:55 Robitussin - PO Q6H PRN COUGH/CHEST CONGESTION Ertapenem 1 gm/ Sodium 50 mls @ 100 mls/hr 02/03/18 14:45 02/03/18 17:12 Chloride IVPB 100 mls/hr DAILY BREANA Administration Sodium Chloride 1,000 mls @ 75 mls/hr 02/04/18 03:07 02/04/18 06:20 Normal Saline - IV 75 mls/hr ASDIR BREANA Administration Insulin Aspart 1 vial 02/03/18 22:00 02/04/18 11:21 Novolog Vial Sliding Scale - SQ Not Given ACHS [facility] Protocol Metoprolol Succinate 25 mg 02/04/18 10:00 02/04/18 09:45 Toprol Xl - PO 25 mg DAILY BREANA Administration Non-Formulary Medication 28 mg 02/04/18 10:00 Memantine Hcl [Namenda Xr] PO DAILY BREANA Risperidone 0.5 mg 02/03/18 22:00 02/03/18 21:04 Risperdal - PO 0.5 mg HS BREANA Administration Senna 1 tab 02/03/18 22:00 02/03/18 21:04 Senna - PO 1 tab HS BREANA Administration ASSESSMENT/PLAN: Patient is an 82 year old male with history of recurrent (and ESBL e. coli) UTI , vascular dementia, CVA, Afib on eliquis, diabetes mellitus, hypertension, hyperlipidemia, benign prostatic hyperplasia, presents from [facility] for UTI. Sepsis secondary to UTI -History of ESBL e.coli last treated 12/2017 at [facility] -Cont. Ertapenem -IV normal saline at 75mL/ hour -F/U urine culture: Positive Lactose fermenting eloise neg -bcs neg 24 hours -F/U ID consult (Dr. Hutchinson) Afib -Eliquis 5mg PO BID -Rate control with metoprolol 25mg PO Diabetes mellitus -Insulin sliding scale ACHS -BGM ACHS Hyperlipidemia -Atorvastatin 40mg PO QHS BERNIE -resolved -minimal left hydronephrosis on U/S -S/p arriola cath placement on 02/01 at [facility] -IV fluids -avoid nephrotoxins Dementia -Aricept 10mg PO QHS -Memantadine 28mg PO daily -Risperidone 0.5mg PO daily -Lexapro 10mg PO daily FEN -IV normal saline at 75mL/ hour -Follow CMP -Diabetic, low sodium cholesterol diet Prophylaxis -Eliquis 5mg PO BID for Afib Disposition -med-surge Visit type - Emergency Visit Emergency Visit: Yes ED Registration Date: 02/03/18 Care time: The patient presented to the Emergency Department on the above date and was hospitalized for further evaluation of their emergent condition. - New Patient This patient is new to me today: Yes Date on this admission: 02/05/18 - Critical Care Critical Care patient: No
[2018-02-04] MEDS: ERTAPENEM SODIUM 1 GM in SODIUM CHLORIDE 50 ML IVPB SCH (13:10)
--- NOTE | 2018-02-04 13:56 | PN ---
Progress Note, Physician History of Present Illness: Pt seen and examined, case reviewed. He is currently alert, afebrile, states feeling "ok" . Daughter at bedside states that he appears better since admission. No vomiting episodes reported today. He still as some lower abd pain but no other specific complaints. - Current Medication List Current Medications: Active Medications Acetaminophen (Tylenol -) 650 mg PO Q4H PRN PRN Reason: PAIN LEVEL 1-5 Last Admin: 02/03/18 21:05 Dose: 650 mg Apixaban (Eliquis -) 5 mg PO BID [facility] Last Admin: 02/04/18 09:45 Dose: 5 mg Atorvastatin Calcium (Lipitor -) 40 mg PO HS [facility] Last Admin: 02/03/18 21:04 Dose: 40 mg Docusate Sodium (Colace -) 200 mg PO HS [facility] Last Admin: 02/03/18 21:04 Dose: 200 mg Donepezil HCl (Aricept -) 10 mg PO HS [facility] Last Admin: 02/03/18 21:04 Dose: 10 mg Escitalopram Oxalate (Lexapro -) 10 mg PO DAILY [facility] Last Admin: 02/04/18 09:45 Dose: 10 mg Guaifenesin (Robitussin -) 5 ml PO Q6H PRN PRN Reason: COUGH/CHEST CONGESTION Ertapenem 1 gm/ Sodium (Chloride) 50 mls @ 100 mls/hr IVPB DAILY [facility] Last Admin: 02/04/18 13:10 Dose: 100 mls/hr Sodium Chloride (Normal Saline -) 1,000 mls @ 75 mls/hr IV ASDIR [facility] Last Admin: 02/04/18 06:20 Dose: 75 mls/hr Insulin Aspart (Novolog Vial Sliding Scale -) 1 vial SQ ACHS [facility]; Protocol Last Admin: 02/04/18 11:21 Dose: Not Given Metoprolol Succinate (Toprol Xl -) 25 mg PO DAILY [facility] Last Admin: 02/04/18 09:45 Dose: 25 mg Non-Formulary Medication (Memantine Hcl [Namenda Xr]) 28 mg PO DAILY [facility] Risperidone (Risperdal -) 0.5 mg PO HS [facility] Last Admin: 02/03/18 21:04 Dose: 0.5 mg Senna (Senna -) 1 tab PO HS [facility] Last Admin: 02/03/18 21:04 Dose: 1 tab - Objective Vital Signs: Vital Signs Temperature 97.7 F 02/04/18 09:00 Pulse Rate 85 02/04/18 09:00 Respiratory Rate 20 02/04/18 09:00 Blood Pressure 151/84 02/04/18 09:00 O2 Sat by Pulse Oximetry (%) 97 02/04/18 09:00 Constitutional: Yes: No Distress, Calm Cardiovascular: Yes: Regular Rate and Rhythm Respiratory: Yes: Regular Gastrointestinal: Yes: Normal Bowel Sounds, Soft Genitourinary: Yes: Marie Present Integumentary: Yes: WNL Neurological: Yes: Alert Labs: CBC, BMP 02/04/18 06:30 02/04/18 06:30 INR, PTT INR 1.78 (0.83-1.09) H 02/03/18 02:38 Microbiology 02/03/18 20:00 Stool Clostridium difficile Antigen (SHAWN) - Final 02/03/18 20:00 Stool Clostridium difficile Toxin Assay - Final 02/02/18 10:30 Urine - Urine - Catheterized Urine Culture - Preliminary Lactose Fermenting Neg Bacilli 02/03/18 02:09 Urine - Urine - Catheterized Urine Culture - Preliminary Lactose Fermenting Neg Bacilli Pending Organism 02/02/18 23:55 Blood - Peripheral Venous Blood Culture - Preliminary NO GROWTH OBTAINED AFTER 24 HOURS, INCUBATION TO CONTINUE FOR 4 DAYS. 02/02/18 23:55 Blood - Peripheral Venous Blood Culture - Preliminary NO GROWTH OBTAINED AFTER 24 HOURS, INCUBATION TO CONTINUE FOR 4 DAYS. - ....Imaging Ultrasound: Report Reviewed Problem List - Problems (1) Severe sepsis Code(s): A41.9 - SEPSIS, UNSPECIFIED ORGANISM; R65.20 - SEVERE SEPSIS WITHOUT SEPTIC SHOCK (2) Afib Code(s): I48.91 - UNSPECIFIED ATRIAL FIBRILLATION Qualifiers: Atrial fibrillation type: persistent Qualified Code(s): I48.1 - Persistent atrial fibrillation (3) Diabetes Code(s): E11.9 - TYPE 2 DIABETES MELLITUS WITHOUT COMPLICATIONS Qualifiers: Diabetes mellitus type: type 2 Diabetes mellitus chcf insulin use: without chcf use Diabetes mellitus complication status: with kidney complications Diabetes mellitus complication detail: with chronic kidney disease Chronic kidney disease stage: stage 2 (mild) Qualified Code(s): E11.22 - Type 2 diabetes mellitus with diabetic chronic kidney disease; N18.2 - Chronic kidney disease, stage 2 (mild) (4) HLD (hyperlipidemia) Code(s): E78.5 - HYPERLIPIDEMIA, UNSPECIFIED Qualifiers: Hyperlipidemia type: pure hypercholesterolemia Qualified Code(s): E78.00 - Pure hypercholesterolemia, unspecified; E78.0 - Pure hypercholesterolemia (5) HTN (hypertension) Code(s): I10 - ESSENTIAL (PRIMARY) HYPERTENSION Qualifiers: Hypertension type: essential hypertension Qualified Code(s): I10 - Essential (primary) hypertension Assessment/Plan Sepsis UTI (history of ESBL+ previously) Neurogenic bladder Urinary retention AFIB CVA Vascular dementia -- mild Lt hydronephosis on ultrasound -- continue Ertapenem for now -- follow up Urine culture isolate -- leukocytosis/fever - resolved
--- NOTE | 2018-02-04 14:13 | PN ---
Teaching Attending Note Name of Resident: Lexis Roa ATTENDING PHYSICIAN STATEMENT I saw and evaluated the patient. I reviewed the resident's note and discussed the case with the resident. I agree with the resident's findings and plan as documented with exceptions below. SUBJECTIVE: Patient seen and examined. no complaints. Doing well. OBJECTIVE: Vital Signs Period Temp Pulse Resp BP Sys/De La Cruz Pulse Ox Last 24 Hr 97.7 F-98.7 F 85-102 18-20 121-168/68-101 97-97 Intake & Output 02/01/18 02/02/18 02/03/18 02/04/18 23:59 23:59 23:59 23:59 Intake Total 735 820 Output Total 1025 400 Balance -290 420 Weight 140 lb 235 lb General: lying in bed in no acute distress Abdomen:Soft, NT, ND, positive bowel sounds Extremities: no edema Active Medications Acetaminophen (Tylenol -) 650 mg PO Q4H PRN PRN Reason: PAIN LEVEL 1-5 Last Admin: 02/03/18 21:05 Dose: 650 mg Apixaban (Eliquis -) 5 mg PO BID [facility] Last Admin: 02/04/18 09:45 Dose: 5 mg Atorvastatin Calcium (Lipitor -) 40 mg PO HS [facility] Last Admin: 02/03/18 21:04 Dose: 40 mg Docusate Sodium (Colace -) 200 mg PO HS [facility] Last Admin: 02/03/18 21:04 Dose: 200 mg Donepezil HCl (Aricept -) 10 mg PO HS [facility] Last Admin: 02/03/18 21:04 Dose: 10 mg Escitalopram Oxalate (Lexapro -) 10 mg PO DAILY [facility] Last Admin: 02/04/18 09:45 Dose: 10 mg Guaifenesin (Robitussin -) 5 ml PO Q6H PRN PRN Reason: COUGH/CHEST CONGESTION Ertapenem 1 gm/ Sodium (Chloride) 50 mls @ 100 mls/hr IVPB DAILY [facility] Last Admin: 02/04/18 13:10 Dose: 100 mls/hr Sodium Chloride (Normal Saline -) 1,000 mls @ 75 mls/hr IV ASDIR [facility] Last Admin: 02/04/18 06:20 Dose: 75 mls/hr Insulin Aspart (Novolog Vial Sliding Scale -) 1 vial SQ ACHS [facility]; Protocol Last Admin: 02/04/18 11:21 Dose: Not Given Metoprolol Succinate (Toprol Xl -) 25 mg PO DAILY [facility] Last Admin: 02/04/18 09:45 Dose: 25 mg Non-Formulary Medication (Memantine Hcl [Namenda Xr]) 28 mg PO DAILY [facility] Risperidone (Risperdal -) 0.5 mg PO HS [facility] Last Admin: 02/03/18 21:04 Dose: 0.5 mg Senna (Senna -) 1 tab PO HS [facility] Last Admin: 02/03/18 21:04 Dose: 1 tab Laboratory Results - last 24 hr 02/03/18 02/03/18 02/04/18 17:11 20:44 05:43 WBC RBC Hgb Hct MCV MCH MCHC RDW Plt Count MPV Sodium Potassium Chloride Carbon Dioxide Anion Gap BUN Creatinine Creat Clearance w eGFR POC Glucometer [id number] 116 106 Random Glucose Calcium Phosphorus Magnesium Total Bilirubin AST ALT Alkaline Phosphatase Total Protein Albumin 02/04/18 02/04/18 02/04/18 06:30 06:30 11:20 WBC 10.0 RBC 4.23 Hgb 12.2 Hct 37.9 MCV 89.6 MCH 28.8 MCHC 32.2 RDW 15.9 Plt Count 159 MPV 10.0 Sodium 142 Potassium 3.3 L Chloride 106 Carbon Dioxide 29 Anion Gap 6 L BUN 19 H Creatinine 0.9 Creat Clearance w eGFR > 60 POC Glucometer 97 Random Glucose 99 Calcium 8.0 L Phosphorus 2.6 Magnesium 1.4 L Total Bilirubin 0.7 AST 12 L ALT 12 L Alkaline Phosphatase 85 Total Protein 5.2 L Albumin 2.4 L Microbiology 02/03/18 20:00 Stool Clostridium difficile Antigen (SHAWN) - Final 02/03/18 20:00 Stool Clostridium difficile Toxin Assay - Final 02/02/18 10:30 Urine - Urine - Catheterized Urine Culture - Preliminary Lactose Fermenting Neg Bacilli 02/03/18 02:09 Urine - Urine - Catheterized Urine Culture - Preliminary Lactose Fermenting Neg Bacilli Pending Organism 02/02/18 23:55 Blood - Peripheral Venous Blood Culture - Preliminary NO GROWTH OBTAINED AFTER 24 HOURS, INCUBATION TO CONTINUE FOR 4 DAYS. 02/02/18 23:55 Blood - Peripheral Venous Blood Culture - Preliminary NO GROWTH OBTAINED AFTER 24 HOURS, INCUBATION TO CONTINUE FOR 4 DAYS. ASSESSMENT AND PLAN: 82 yom with PMHx of vascular dementia NHR, Afib on eliquis, CVA, DM, HTN, HLD, BPH, and neurogenic bladder sent with vomiting/hypotension/low grade fever, found with UTI with sepsis -Sepsis secondary to UTI, likely from underlying neurogenic bladder/Mild left hydronephrosis -Lactic acidosis, from above/hypovolumia -BERNIE, from sepsis/hypovolumia, r/o obstructive process -Atrial fibrillation on dementia -CVA -NIDDM -HTN -HLD -BPH -Vascular dementia Plan: ?h/o ESBL UTi. Retrieve more info from [place]. Urine cultures noted, ertapenem day 2 for now. ID input noed. S/p arriola cath placement on 02/01 at [place]. Renal/Bladder US noted, mild left hydronephrosis. Repeat imaging in 24 hours of arriola placement. Urology input if persistent. If resolved, will dc with arriola and outpatient urology follow up in 1 week, start flomax. D/c IVF. Continue eliquis/metoprolol ISS, diabetic diet. Hold metformin. Continue statin/risperidone. DVTPPX with eliquis Code status:DNR on [place] charts, confirm with HCP Dispo pending clinical improvement in 48 hours if improves. Plan discussed with nursing and CM.
[2018-02-04] MEDS: ACETAMINOPHEN 325 MG TABLET (FP) PO PRN (14:16)
--- NOTE | 2018-02-04 19:18 | CONSULT ---
Consult Consult Specialty:: UROLOGY Reason for Consultation:: UROSEPSIS - History of Present Illness Chief Complaint: 82 Y/O Male patient with history of BPH, A-Fib, CVA, Dementia and AUR developed sepsis admitted and treated with IV ertapenam and arriola catheter insertion. his WBC from 20 to 10 . S.Creat from 1.7 to 0.9, BUN 19. Renal U/S mild left hydronephrosis. 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: CVA Cardio/Vascular: Yes: HTN, Hyperlipdemia - Alcohol/Substance Use Hx Alcohol Use: No - Smoking History Smoking history: Never smoked Have you smoked in the past 12 months: No Home Medications - Allergies Allergies/Adverse Reactions: Allergies Allergy/AdvReac Type Severity Reaction Status Date / Time No Known Allergies Allergy Verified 02/02/18 20:57 - Home Medications Home Medications: Ambulatory Orders Acetaminophen 1,000 mg PO DAILY 01/25/18 Alfuzosin HCl [Uroxatral] 10 mg PO DAILY 01/25/18 Atorvastatin Ca [Lipitor] 40 mg PO HS 01/25/18 Docusate Sodium 200 mg PO HS 01/25/18 Donepezil HCl 10 mg PO HS 01/25/18 Escitalopram Oxalate [Lexapro -] 10 mg PO DAILY 01/25/18 Guaifenesin [Robitussin -] 100 mg PO Q6H PRN 01/25/18 Lisinopril 5 mg PO DAILY 01/25/18 Memantine HCl [Namenda Xr] 28 mg PO DAILY 01/25/18 Polyethylene Glycol 3350 17 gm PO DAILY 01/25/18 Risperidone [Risperdal -] 0.5 mg PO HS 01/25/18 Sennosides [Senokot] 8.6 mg PO HS 01/25/18 metFORMIN HCL [Metformin HCl] 500 mg PO BID 01/25/18 Apixaban [Eliquis -] 5 mg PO BID tablet 01/26/18 Physical Exam Vital Signs: Vital Signs Temperature 97.8 F 02/04/18 16:35 Pulse Rate 88 02/04/18 16:35 Respiratory Rate 18 02/04/18 16:35 Blood Pressure 134/79 02/04/18 16:35 O2 Sat by Pulse Oximetry (%) 97 02/04/18 09:00 Labs: CBC, BMP 02/04/18 06:30 02/04/18 06:30 Assessment/Plan BPH, AUR, SEPSIS he is improving with IV abx and arriola catheter. will do CT-Scan of abd and pelvis without contrast.
[2018-02-04] MEDS: TAMSULOSIN HCL 0.4 MG CAP PO SCH (21:54)
[2018-02-04] MEDS: ATORVASTATIN CA 40 MG TABLET (FP) PO SCH (21:55)
[2018-02-04] MEDS: risperiDONE 0.5 MG TABLET (FP) PO SCH (21:55)
[2018-02-04] MEDS: DONEPEZIL HCL 10 MG TABLET (FP) PO SCH (21:55)
[2018-02-04] MEDS: DOCUSATE SODIUM 100 MG CAPSULE (FP) PO SCH (22:00)
[2018-02-04] MEDS: SENNOSIDES 8.6MG TABLET (FP) PO SCH (22:00)
[2018-02-05] MEDS: ACETAMINOPHEN 325 MG TABLET (FP) PO PRN ×3 (05:13→22:08)
[2018-02-05] MEDS: INSULIN SLIDING SCALE (NOVOLOG) 1 VIAL SQ SCH ×4 (06:07→22:09)
[2018-02-05 07:52] LABS: ALBUMIN 2.6 g/dl (3.4-5.0); ALK PHOS 91 U/L (45-117); ANION GAP 8 MMOL/L (8-16); BILIRUBIN,TOTAL 0.5 mg/dL (0.2-1); BLOOD UREA NITROGEN 14 mg/dL (7-18); CALCIUM 7.9 mg/dL (8.5-10.1); CHLORIDE 109 mmol/L (98-107); CO2 25 mmol/L (21-32); CREATININE 0.7 mg/dL (0.55-1.3); GLUCOSE,RANDOM 109 mg/dL (74-106); MAGNESIUM 1.6 mg/dL (1.8-2.4); PHOSPHOROUS 2.7 mg/dL (2.5-4.9); POTASSIUM 3.5 mmol/L (3.5-5.1); SGOT/AST 17 U/L (15-37); SGPT/ALT 16 U/L (13-61); SODIUM 141 mmol/L (136-145); TOT PROT 5.6 g/dl (6.4-8.2)
[2018-02-05 08:31] LABS: BASO % 0.2 % (0-2.0); EOS % 3.1 % (0-4.5); HEMATOCRIT 36.8 % (35.4-49); HEMOGLOBIN 12.9 GM/dL (11.7-16.9); LYMPH % 9.1 % (8-40); MCH 30.8 pg (25.7-33.7); MCHC 35.1 g/dl (32.0-35.9); MEAN CELL VOLUME 87.8 fl (80-96); MEAN PLT VOLUME 10.2 fl (7.5-11.1); MONO % 9.2 % (3.8-10.2); NEUT % 78.4 % (42.8-82.8); PLATELET COUNT 172 K/MM3 (134-434); RBC 4.19 M/mm3 (4.00-5.60); RDW 15.4 % (11.9-15.9); WHITE BLOOD COUNT 8.2 K/mm3 (4.0-10.0)
[2018-02-05] MEDS: metoPROLOL SUCCINATE 25 MG TAB.SR.24H (FP) PO SCH (10:01)
[2018-02-05] MEDS: ERTAPENEM SODIUM 1 GM in SODIUM CHLORIDE 50 ML IVPB SCH (10:01)
[2018-02-05] MEDS: APIXABAN 5 MG TABLET PO SCH ×2 (10:01→22:08)
[2018-02-05] MEDS: ESCITALOPRAM OXALATE 10 MG TABLET (FP) PO SCH (10:01)
--- NOTE | 2018-02-05 10:28 | PN ---
Progress Note, Physician History of Present Illness: Pt with complaints of suprapubic pain but no other specific complaints. Currently alert. Tmax 99F. - Current Medication List Current Medications: Active Medications Acetaminophen (Tylenol -) 650 mg PO Q4H PRN PRN Reason: PAIN LEVEL 1-5 Last Admin: 02/05/18 05:13 Dose: 650 mg Apixaban (Eliquis -) 5 mg PO BID [facility] Last Admin: 02/05/18 10:01 Dose: 5 mg Atorvastatin Calcium (Lipitor -) 40 mg PO HS [facility] Last Admin: 02/04/18 21:55 Dose: 40 mg Docusate Sodium (Colace -) 200 mg PO HS [facility] Last Admin: 02/04/18 22:00 Dose: Not Given Donepezil HCl (Aricept -) 10 mg PO HS [facility] Last Admin: 02/04/18 21:55 Dose: 10 mg Escitalopram Oxalate (Lexapro -) 10 mg PO DAILY [facility] Last Admin: 02/05/18 10:01 Dose: 10 mg Guaifenesin (Robitussin -) 5 ml PO Q6H PRN PRN Reason: COUGH/CHEST CONGESTION Ceftriaxone Sodium 1 gm/ (Dextrose) 100 mls @ 200 mls/hr IVPB DAILY [facility]; Protocol Insulin Aspart (Novolog Vial Sliding Scale -) 1 vial SQ ACHS [facility]; Protocol Last Admin: 02/05/18 06:07 Dose: Not Given Metoprolol Succinate (Toprol Xl -) 25 mg PO DAILY [facility] Last Admin: 02/05/18 10:01 Dose: 25 mg Non-Formulary Medication (Memantine Hcl [Namenda Xr]) 28 mg PO DAILY [facility] Risperidone (Risperdal -) 0.5 mg PO HS [facility] Last Admin: 02/04/18 21:55 Dose: 0.5 mg Senna (Senna -) 1 tab PO HS [facility] Last Admin: 02/04/18 22:00 Dose: Not Given Tamsulosin HCl (Flomax -) 0.4 mg PO [facility] Last Admin: 02/04/18 21:54 Dose: 0.4 mg - Objective Vital Signs: Vital Signs Temperature 99.0 F 02/05/18 06:00 Pulse Rate 89 02/05/18 06:00 Respiratory Rate 18 02/05/18 06:00 Blood Pressure 151/98 02/05/18 06:00 O2 Sat by Pulse Oximetry (%) 95 02/04/18 20:24 Constitutional: Yes: No Distress, Calm Cardiovascular: Yes: Regular Rate and Rhythm Respiratory: Yes: Regular Gastrointestinal: Yes: Normal Bowel Sounds, Soft, Tenderness (lower abdomen with deep palpation) Genitourinary: Yes: Marie Present Neurological: Yes: Alert Labs: CBC, BMP 02/05/18 06:45 02/05/18 06:45 INR, PTT INR 1.78 (0.83-1.09) H 02/03/18 02:38 Microbiology 02/03/18 02:09 Urine - Urine - Catheterized Urine Culture - Preliminary Escherichia Coli Group D Strep Or Entero Coccus 02/02/18 10:30 Urine - Urine - Catheterized Urine Culture - Final Escherichia Coli 02/03/18 20:00 Stool Salmonella/Shigella Culture - Preliminary NO ENTERIC PATHOGENS, 24 HOURS, ON PRIMARY PLATES 02/03/18 20:00 Stool Yersinia Culture - Preliminary NO ENTERIC PATHOGENS, 24 HOURS, ON PRIMARY PLATES 02/03/18 20:00 Stool Vibrio Culture - Final NO GROWTH OF VIBRIO SPECIES OBTAINED 02/03/18 20:00 Stool Escherichia coli 0157 Culture - Final NO GROWTH OF E COLI 0157 OBTAINED 02/02/18 23:55 Blood - Peripheral Venous Blood Culture - Preliminary NO GROWTH OBTAINED AFTER 48 HOURS, INCUBATION TO CONTINUE FOR 3 DAYS. 02/02/18 23:55 Blood - Peripheral Venous Blood Culture - Preliminary NO GROWTH OBTAINED AFTER 48 HOURS, INCUBATION TO CONTINUE FOR 3 DAYS. 02/03/18 20:00 Stool Clostridium difficile Antigen (SHAWN) - Final 02/03/18 20:00 Stool Clostridium difficile Toxin Assay - Final Problem List - Problems (1) Severe sepsis Code(s): A41.9 - SEPSIS, UNSPECIFIED ORGANISM; R65.20 - SEVERE SEPSIS WITHOUT SEPTIC SHOCK (2) Afib Code(s): I48.91 - UNSPECIFIED ATRIAL FIBRILLATION Qualifiers: Atrial fibrillation type: persistent Qualified Code(s): I48.1 - Persistent atrial fibrillation (3) Diabetes Code(s): E11.9 - TYPE 2 DIABETES MELLITUS WITHOUT COMPLICATIONS Qualifiers: Diabetes mellitus type: type 2 Diabetes mellitus residential insulin use: without aoc 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 Diabetes mellitus complication status: with kidney complications Diabetes mellitus complication detail: with chronic kidney disease Chronic kidney disease stage: stage 2 (mild) Qualified Code(s): E11.22 - Type 2 diabetes mellitus with diabetic chronic kidney disease; N18.2 - Chronic kidney disease, stage 2 (mild) (4) HLD (hyperlipidemia) Code(s): E78.5 - HYPERLIPIDEMIA, UNSPECIFIED Qualifiers: Hyperlipidemia type: pure hypercholesterolemia Qualified Code(s): E78.00 - Pure hypercholesterolemia, unspecified; E78.0 - Pure hypercholesterolemia (5) HTN (hypertension) Code(s): I10 - ESSENTIAL (PRIMARY) HYPERTENSION Qualifiers: Hypertension type: essential hypertension Qualified Code(s): I10 - Essential (primary) hypertension Assessment/Plan Sepsis UTI Neurogenic bladder Urinary retention AFIB CVA Vascular dementia -- mild Lt hydronephosis on ultrasound -- urine culture results noted. Will d/c Ertapenem and switch to Ceftriaxone -- Urology consultation noted -- CT abd/pelvis ordered leukocytosis resolved continue monitor
--- NOTE | 2018-02-05 12:41 | PN ---
Physical Exam: SUBJECTIVE: Patient seen and examined, no complaints, history limited by dementia OBJECTIVE: Vital Signs Period Temp Pulse Resp BP Sys/De La Cruz Pulse Ox Last 24 Hr 97.8 F-99.0 F 79-93 18-18 130-168/64-98 95 GENERAL: awake in bed, no acute distress, oriented to self Neck: soft, supple, no JVD Chest: poor effort, no rales or wheezing Abdomen:Soft, NT, no suprapubic or CVA tenderness Extremities: no edema Laboratory Results - last 24 hr 02/04/18 02/04/18 02/05/18 17:12 21:54 05:12 WBC RBC Hgb Hct MCV MCH MCHC RDW Plt Count MPV Absolute Neuts (auto) Neutrophils % Lymphocytes % Monocytes % Eosinophils % Basophils % Nucleated RBC % Sodium Potassium Chloride Carbon Dioxide Anion Gap BUN Creatinine Creat Clearance w eGFR POC Glucometer 121 99 104 Random Glucose Calcium Phosphorus Magnesium Total Bilirubin AST ALT Alkaline Phosphatase Total Protein Albumin 02/05/18 02/05/18 06:45 06:45 WBC 8.2 RBC 4.19 Hgb 12.9 Hct 36.8 MCV 87.8 MCH 30.8 MCHC 35.1 RDW 15.4 Plt Count 172 MPV 10.2 Absolute Neuts (auto) 6.4 Neutrophils % 78.4 Lymphocytes % 9.1 D Monocytes % 9.2 Eosinophils % 3.1 D Basophils % 0.2 Nucleated RBC % 0 Sodium 141 Potassium 3.5 Chloride 109 H Carbon Dioxide 25 Anion Gap 8 BUN 14 Creatinine 0.7 Creat Clearance w eGFR > 60 POC Glucometer Random Glucose 109 H Calcium 7.9 L Phosphorus 2.7 Magnesium 1.6 L Total Bilirubin 0.5 AST 17 ALT 16 Alkaline Phosphatase 91 Total Protein 5.6 L Albumin 2.6 L Active Medications Generic Name Dose Route Start Last Admin Trade Name Freq PRN Reason Stop Dose Admin Acetaminophen 650 mg 02/03/18 19:55 02/05/18 05:13 Tylenol - PO 650 mg Q4H PRN Administration PAIN LEVEL 1-5 Apixaban 5 mg 02/03/18 22:00 02/05/18 10:01 Eliquis - PO 5 mg BID [facility] Administration Atorvastatin Calcium 40 mg 02/03/18 22:00 02/04/18 21:55 Lipitor - PO 40 mg HS [facility] Administration Docusate Sodium 200 mg 02/03/18 22:00 12/22/18 22:00 Colace - PO Not Given HS [facility] Donepezil HCl 10 mg 02/03/18 22:00 02/04/18 21:55 Aricept - PO 10 mg HS [facility] Administration Escitalopram Oxalate 10 mg 02/04/18 10:00 02/05/18 10:01 Lexapro - PO 10 mg DAILY [facility] Administration Guaifenesin 5 ml 02/03/18 19:55 Robitussin - PO Q6H PRN COUGH/CHEST CONGESTION Ceftriaxone Sodium 1 gm/ 50 mls @ 100 mls/hr 02/06/18 10:00 Dextrose IVPB DAILY [facility] Protocol Insulin Aspart 1 vial 02/03/18 22:00 02/05/18 06:07 Novolog Vial Sliding Scale - SQ Not Given ACHS [facility] Protocol Magnesium Oxide 800 mg 02/05/18 12:45 Mag-Ox - PO 02/07/18 10:01 DAILY [facility] Magnesium Sulfate 2 gm 02/05/18 12:38 Magnesium Sulfate IVPB 02/05/18 12:39 ONCE ONE Metoprolol Succinate 25 mg 02/04/18 10:00 02/05/18 10:01 Toprol Xl - PO 25 mg DAILY [facility] Administration Non-Formulary Medication 28 mg 02/04/18 10:00 Memantine Hcl [Namenda Xr] PO DAILY [facility] Potassium Chloride 40 meq 02/05/18 12:38 K-Dur - PO 02/05/18 12:39 ONCE ONE Risperidone 0.5 mg 02/03/18 22:00 02/04/18 21:55 Risperdal - PO 0.5 mg HS [facility] Administration Senna 1 tab 02/03/18 22:00 02/04/18 22:00 Senna - PO Not Given HS [facility] Tamsulosin HCl 0.4 mg 02/04/18 22:00 02/04/18 21:54 Flomax - PO 0.4 mg HS [facility] Administration Microbiology 02/03/18 02:09 Urine - Urine - Catheterized Urine Culture - Preliminary Escherichia Coli Group D Strep Or Entero Coccus 02/02/18 10:30 Urine - Urine - Catheterized Urine Culture - Final Escherichia Coli 02/03/18 20:00 Stool Salmonella/Shigella Culture - Preliminary NO ENTERIC PATHOGENS, 24 HOURS, ON PRIMARY PLATES 02/03/18 20:00 Stool Yersinia Culture - Preliminary NO ENTERIC PATHOGENS, 24 HOURS, ON PRIMARY PLATES 02/03/18 20:00 Stool Vibrio Culture - Final NO GROWTH OF VIBRIO SPECIES OBTAINED 02/03/18 20:00 Stool Escherichia coli 0157 Culture - Final NO GROWTH OF E COLI 0157 OBTAINED 02/02/18 23:55 Blood - Peripheral Venous Blood Culture - Preliminary NO GROWTH OBTAINED AFTER 48 HOURS, INCUBATION TO CONTINUE FOR 3 DAYS. 02/02/18 23:55 Blood - Peripheral Venous Blood Culture - Preliminary NO GROWTH OBTAINED AFTER 48 HOURS, INCUBATION TO CONTINUE FOR 3 DAYS. 02/03/18 20:00 Stool Clostridium difficile Antigen (SHAWN) - Final 02/03/18 20:00 Stool Clostridium difficile Toxin Assay - Final CT A/P results reviewed ASSESSMENT/PLAN: 82 yom with PMHx of vascular dementia NHR, Afib on eliquis, CVA, DM, HTN, HLD, BPH, and neurogenic bladder sent with vomiting/hypotension/low grade fever, found with UTI with sepsis -Sepsis secondary to E. coli/Enterococcal UTI, likely from underlying neurogenic bladder/Mild left hydronephrosis -Lactic acidosis, from above/hypovolumia -BERNIE, from sepsis/hypovolumia, r/o obstructive process -Atrial fibrillation on dementia -CVA -NIDDM -HTN -HLD -BPH -Vascular dementia -Hypomagnesemia Plan: Urine cx noted, ID input noted. s/p 2 days of ertapenem. Ceftriaxone day 1. Urology input noted. Anticipate d/c with arriola with outpatient urology follow up. Flomax started. Transition to PO abx on dc. Renal/Bladder US noted, mild left hydronephrosis. CT A/P neg for concerns. replete Mg. Continue eliquis/metoprolol ISS, diabetic diet. Hold metformin. Continue statin/risperidone. DVTPPX with eliquis Code status:DNR on [place] charts, confirm with HCP Dispo PT eval, plan for d/c back to [place] in 24 hours if no concerns. Plan discussed with nursing and CM. Visit type - Emergency Visit Emergency Visit: Yes ED Registration Date: 02/03/18 Care time: The patient presented to the Emergency Department on the above date and was hospitalized for further evaluation of their emergent condition. - New Patient This patient is new to me today: No - Critical Care Critical Care patient: No - Discharge Referral Referred to [facility] Med P.C.: No
[2018-02-05] MEDS ORDERED: POTASSIUM CHLORIDE TABS 20 MEQ TABLET.ER (FP) PO ONE (13:30)
[2018-02-05] MEDS ORDERED: MAGNESIUM SULF 50% (8.12 MEQ/2 ML-1 GM VIAL) IVPB ONE (13:30)
[2018-02-05] MEDS: MAGNESIUM OXIDE 400 MG TABLET (FP) PO SCH (14:07)
--- NOTE | 2018-02-05 20:56 | PN ---
Progress Note (short form) - Note Progress Note: UROLOGY NOTE. pt. with aur and lt. hydro. will need cysto and poss tuvp when med. ok.
[2018-02-05] MEDS: DOCUSATE SODIUM 100 MG CAPSULE (FP) PO SCH (21:48)
[2018-02-05] MEDS: SENNOSIDES 8.6MG TABLET (FP) PO SCH (21:48)
[2018-02-05] MEDS ORDERED: PT OWN MED DRAWER 7, Y5N ONE (21:52)
[2018-02-05] MEDS: risperiDONE 0.5 MG TABLET (FP) PO SCH (22:08)
[2018-02-05] MEDS: TAMSULOSIN HCL 0.4 MG CAP PO SCH (22:08)
[2018-02-05] MEDS: ATORVASTATIN CA 40 MG TABLET (FP) PO SCH (22:08)
[2018-02-05] MEDS: DONEPEZIL HCL 10 MG TABLET (FP) PO SCH (22:09)
[2018-02-05] MEDS ORDERED: LIDOCAINE HCL 5% TOP OINTMENT 50 GM TUBE TP ONE (23:21)
[2018-02-06] MEDS: INSULIN SLIDING SCALE (NOVOLOG) 1 VIAL SQ SCH ×3 (06:00→17:21)
[2018-02-06] MEDS: ACETAMINOPHEN 325 MG TABLET (FP) PO PRN ×2 (06:29→18:11)
--- NOTE | 2018-02-06 07:33 | PN ---
Teaching Attending Note Name of Resident: David Sadler ATTENDING PHYSICIAN STATEMENT I saw and evaluated the patient. I reviewed the resident's note and discussed the case with the resident. I agree with the resident's findings and plan as documented with exceptions below. SUBJECTIVE: Patient seen and examined. Pain at site of arriola. History limited by dementia. OBJECTIVE: Vital Signs Period Temp Pulse Resp BP Sys/De La Cruz Pulse Ox Last 24 Hr 97.3 F-98.9 F 80-88 16-20 138-179/75-98 95-95 Intake & Output 02/03/18 02/04/18 02/05/18 02/06/18 23:59 23:59 23:59 23:59 Intake Total 735 1520 740 Output Total 1025 1100 325 Balance -290 420 415 Weight 235 lb 235 lb General: lying in bed in no acute distress Abdomen: soft, NT, ND, positive bowel sounds Pelvis: urine flowing around arriola cath., no scrotal tenderness or erythema noted Active Medications Acetaminophen (Tylenol -) 650 mg PO Q4H PRN PRN Reason: PAIN LEVEL 1-5 Last Admin: 02/06/18 06:29 Dose: 650 mg Apixaban (Eliquis -) 5 mg PO BID [facility] Last Admin: 02/05/18 22:08 Dose: 5 mg Atorvastatin Calcium (Lipitor -) 40 mg PO HS [facility] Last Admin: 02/05/18 22:08 Dose: 40 mg Docusate Sodium (Colace -) 200 mg PO HS [facility] Last Admin: 02/05/18 21:48 Dose: Not Given Donepezil HCl (Aricept -) 10 mg PO HS [facility] Last Admin: 02/05/18 22:09 Dose: 10 mg Escitalopram Oxalate (Lexapro -) 10 mg PO DAILY [facility] Last Admin: 02/05/18 10:01 Dose: 10 mg Guaifenesin (Robitussin -) 5 ml PO Q6H PRN PRN Reason: COUGH/CHEST CONGESTION Ceftriaxone Sodium 1 gm/ (Dextrose) 50 mls @ 100 mls/hr IVPB DAILY [facility]; Protocol Insulin Aspart (Novolog Vial Sliding Scale -) 1 vial SQ ACHS [facility]; Protocol Last Admin: 02/06/18 06:00 Dose: Not Given Lisinopril (Prinivil) 5 mg PO DAILY [facility] Magnesium Oxide (Mag-Ox -) 800 mg PO DAILY [facility] Stop: 02/07/18 10:01 Last Admin: 02/05/18 14:07 Dose: 800 mg Metoprolol Succinate (Toprol Xl -) 25 mg PO DAILY [facility] Last Admin: 02/05/18 10:01 Dose: 25 mg Non-Formulary Medication (Memantine Hcl [Namenda Xr]) 28 mg PO DAILY [facility] Risperidone (Risperdal -) 0.5 mg PO [facility] Last Admin: 02/05/18 22:08 Dose: 0.5 mg Senna (Senna -) 1 tab PO [facility] Last Admin: 02/05/18 21:48 Dose: Not Given Tamsulosin HCl (Flomax -) 0.4 mg PO [facility] Last Admin: 02/05/18 22:08 Dose: 0.4 mg Laboratory Results - last 24 hr 02/05/18 02/05/18 02/06/18 16:47 22:07 04:45 Sodium Potassium Chloride Carbon Dioxide Anion Gap BUN Creatinine Creat Clearance w eGFR POC Glucometer 111 106 106 Random Glucose Calcium Phosphorus Magnesium 02/06/18 02/06/18 07:45 11:38 Sodium 143 Potassium 3.9 Chloride 110 H Carbon Dioxide 25 Anion Gap 8 BUN 14 Creatinine 0.7 Creat Clearance w eGFR > 60 POC Glucometer 99 Random Glucose 106 Calcium 8.0 L Phosphorus 2.9 Magnesium 1.8 Microbiology 02/02/18 23:55 Blood - Peripheral Venous Blood Culture - Preliminary NO GROWTH OBTAINED AFTER 72 HOURS, INCUBATION TO CONTINUE FOR 2 DAYS. 02/02/18 23:55 Blood - Peripheral Venous Blood Culture - Preliminary NO GROWTH OBTAINED AFTER 72 HOURS, INCUBATION TO CONTINUE FOR 2 DAYS. 02/03/18 02:09 Urine - Urine - Catheterized Urine Culture - Preliminary Escherichia Coli Group D Strep Or Entero Coccus 02/02/18 10:30 Urine - Urine - Catheterized Urine Culture - Final Escherichia Coli 02/03/18 20:00 Stool Salmonella/Shigella Culture - Preliminary NO ENTERIC PATHOGENS, 24 HOURS, ON PRIMARY PLATES 02/03/18 20:00 Stool Yersinia Culture - Preliminary NO ENTERIC PATHOGENS, 24 HOURS, ON PRIMARY PLATES 02/03/18 20:00 Stool Vibrio Culture - Final NO GROWTH OF VIBRIO SPECIES OBTAINED 02/03/18 20:00 Stool Escherichia coli 0157 Culture - Final NO GROWTH OF E COLI 0157 OBTAINED 02/03/18 20:00 Stool Clostridium difficile Antigen (SHAWN) - Final 02/03/18 20:00 Stool Clostridium difficile Toxin Assay - Final Scrotal US results reviewed ASSESSMENT AND PLAN: 82 yom with PMHx of vascular dementia NHR, Afib on eliquis, CVA, DM, HTN, HLD, BPH, and neurogenic bladder sent with vomiting/hypotension/low grade fever, found with UTI with sepsis, urinary retention and mild left hydronephrosis -Sepsis secondary to E. coli/Enterococcal UTI, likely from underlying neurogenic bladder -Left hydronephrosis resolved with Arriola placement -Pelvic pain at site of arriola today -Hydrocele/?scrotal mass -Lactic acidosis, from above/hypovolumia -BERNIE, from sepsis/hypovolumia/obstruction, resolved -Atrial fibrillation on dementia -CVA -NIDDM -HTN -HLD -BPH -Vascular dementia -Hypomagnesemia Plan: Urine cx noted, ID input noted. s/p 2 days of ertapenem. Ceftriaxone day 2. Urology input noted, flomax started. Flomax started. Renal/Bladder US noted, mild left hydronephrosis. CT A/P neg for concerns. Pain around arriola and in scrotal region today. SCrotal US with hydrocele/? scrotal mass, will need outpatient urology follow up. No further diarrhea, stool studies for salmonella/shigella noted, discuss with ID. patient with no further diarrhea. replete Mg prn. Continue eliquis/metoprolol Resume lisinopril ISS, diabetic diet. Hold metformin. Continue statin/risperidone. DVTPPX with eliquis Code status:DNR on [place] charts, confirm with HCP Dispo PT eval, plan for d/c back to [place] on po abx and arriola with outpatient follow up in 1-2 days if no acute concerns . Plan discussed with nursing
[2018-02-06] MEDS ORDERED: MORPHINE SULFATE 2 MG/ML VIAL IM ONE ×2 (07:44→16:15)
[2018-02-06] MEDS ORDERED: DEXTROSE 5%-WATER - 50 ML IVPB ONE (08:50)
[2018-02-06] MEDS ORDERED: cefTRIAXone SODIUM 1 GM VIAL ONE (08:50)
--- NOTE | 2018-02-06 08:58 | PN ---
Physical Exam: SUBJECTIVE: Patient seen and examined at bedside this morning. Complains of pain (points to groin). Patient does not offer any further complaints. OBJECTIVE: Vital Signs Period Temp Pulse Resp BP Sys/De La Cruz Pulse Ox Last 24 Hr 97.3 F-98.9 F 80-88 16-20 138-179/75-98 95-95 GENERAL: The patient is awake, oriented to self only, in no acute distress. HEENT: Normocephalic, atraumatic. PERRL, sclera anicteric, conjunctiva clear. Dry mucous membranes LUNGS: Poor inspiratory effort, and air entry B/L. No wheezes, crackles auscultated. No accessory muscle use HEART: Irregular rate and rhythm, S1, S2 without murmur, rub or gallop. ABDOMEN: Obese. Soft, nontender, nondistended. no guarding, no rebound tenderness. No hepatosplenomegaly appreciated. GENITAL: Arriola catheter draining clear, yellow urine. Insertion site visualized without bleeding, drainage, or erythema. Testicles are soft, however appear more swollen compared to prior exam. Exquisitely tender to palpation. EXTREMITIES: 2+ radial and dorsalis pedis pulses b/l. pulses, Warm, well- perfused. 1+ pitting edema B/L lower extremities. NEUROLOGICAL: Freely moves all four extremities. Good muscular tone b/l upper and lower extremities. SKIN: Warm, dry. Laboratory Results - last 24 hr 02/05/18 02/05/18 02/05/18 12:21 16:47 22:07 POC Glucometer 109 111 106 02/06/18 04:45 POC Glucometer 106 Active Medications Generic Name Dose Route Start Last Admin Trade Name Onelq PRN Reason Stop Dose Admin Acetaminophen 650 mg 02/03/18 19:55 02/06/18 06:29 Tylenol - PO 650 mg Q4H PRN Administration PAIN LEVEL 1-5 Apixaban 5 mg 02/03/18 22:00 02/05/18 22:08 Eliquis - PO 5 mg BID BREANA Administration Atorvastatin Calcium 40 mg 02/03/18 22:00 02/05/18 22:08 Lipitor - PO 40 mg HS BREANA Administration Docusate Sodium 200 mg 02/03/18 22:00 02/05/18 21:48 Colace - PO Not Given HS BREANA Donepezil HCl 10 mg 02/03/18 22:00 02/05/18 22:09 Aricept - PO 10 mg HS BREANA Administration Escitalopram Oxalate 10 mg 02/04/18 10:00 02/05/18 10:01 Lexapro - PO 10 mg DAILY BREANA Administration Guaifenesin 5 ml 02/03/18 19:55 Robitussin - PO Q6H PRN COUGH/CHEST CONGESTION Ceftriaxone Sodium 1 gm/ 50 mls @ 100 mls/hr 02/06/18 10:00 Dextrose IVPB DAILY [facility] Protocol Insulin Aspart 1 vial 02/03/18 22:00 02/06/18 06:00 Novolog Vial Sliding Scale - SQ Not Given ACHS [facility] Protocol Lisinopril 5 mg 02/06/18 10:00 Prinivil PO DAILY BREANA Magnesium Oxide 800 mg 02/05/18 13:30 02/05/18 14:07 Mag-Ox - PO 02/07/18 10:01 800 mg DAILY BREANA Administration Metoprolol Succinate 25 mg 02/04/18 10:00 02/05/18 10:01 Toprol Xl - PO 25 mg DAILY BREANA Administration Non-Formulary Medication 28 mg 02/04/18 10:00 Memantine Hcl [Namenda Xr] PO DAILY BREANA Risperidone 0.5 mg 02/03/18 22:00 02/05/18 22:08 Risperdal - PO 0.5 mg HS BREANA Administration Senna 1 tab 02/03/18 22:00 02/05/18 21:48 Senna - PO Not Given HS BREANA Tamsulosin HCl 0.4 mg 02/04/18 22:00 02/05/18 22:08 Flomax - PO 0.4 mg HS BREANA Administration ASSESSMENT/PLAN: Patient is an 82 year old male with history of recurrent (and ESBL e. coli) UTI , vascular dementia, CVA, Afib on eliquis, diabetes mellitus, hypertension, hyperlipidemia, benign prostatic hyperplasia, presents from [facility] for UTI. Sepsis secondary to UTI -History of ESBL e.coli last treated 12/2017 at [facility] -Patient received vancomycin and meropenem in ED -Lactic acid 3.3 -> 2.8 -> 1.3 -IV normal saline at 100mL/ hour -Ertapenem switched to Ceftriaxone 1 gram IV daily -Urine culture grows E. coli, and Group D strep -Blood cultures negative for growth at 72 hours -ID consult (Dr. Hutchinson) appreciated. -Renal and bladder US shows minimal to mild left hydronephrosis, without right sided hydronephrosis, Groin pain -Scrotal US negative for testicular torsion. 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 -Patient complains of pain at arriola catheter insertion site. Will remove old arriola catheter, and place new catheter. -F/U urology consult (Dr. Montana) Afib -Eliquis 5mg PO BID -Rate control with metoprolol 25mg PO Diabetes mellitus -Insulin sliding scale ACHS -BGM ACHS Hyperlipidemia -Atorvastatin 40mg PO QHS Dementia -Aricept 10mg PO QHS -Memantadine 28mg PO daily -Risperidone 0.5mg PO daily -Lexapro 10mg PO daily FEN -IV normal saline at 100mL/ hour -Follow CMP -Diabetic, low sodium cholesterol diet Prophylaxis -Patient is on Eliquis 5mg PO BID for Afib Disposition -Patient for D/C back to [facility], pending approval.
--- NOTE | 2018-02-06 09:01 | PN ---
Progress Note (short form) - Note Progress Note: UROLOGY NOTE. pt. with bph with luts and lt. hydrobephrosis and bladder floor filling defect, most likely prostate but other pathology must be r/o. pt. will have w/u and r/x as op.
[2018-02-06] MEDS: metoPROLOL SUCCINATE 25 MG TAB.SR.24H (FP) PO SCH (09:06)
[2018-02-06] MEDS: APIXABAN 5 MG TABLET PO SCH (09:06)
[2018-02-06] MEDS: ESCITALOPRAM OXALATE 10 MG TABLET (FP) PO SCH (09:06)
[2018-02-06] MEDS: MAGNESIUM OXIDE 400 MG TABLET (FP) PO SCH (09:07)
[2018-02-06 09:47] LABS: ANION GAP 8 MMOL/L (8-16); BLOOD UREA NITROGEN 14 mg/dL (7-18); CHLORIDE 110 mmol/L (98-107); CO2 25 mmol/L (21-32); CREATININE 0.7 mg/dL (0.55-1.3); GLUCOSE,RANDOM 106 mg/dL (74-106); MAGNESIUM 1.8 mg/dL (1.8-2.4); PHOSPHOROUS 2.9 mg/dL (2.5-4.9); POTASSIUM 3.9 mmol/L (3.5-5.1); SODIUM 143 mmol/L (136-145)
[2018-02-06] MEDS ORDERED: LISINOPRIL 5 MG TABLET (FP) PO SCH (10:00)
[2018-02-06] MEDS ORDERED: CEFTRIAXONE 1 GM in DEXTROSE 5%-WATER - 50 ML IVPB SCH (10:00)
--- NOTE | 2018-02-06 15:50 | PN ---
Progress Note, Physician History of Present Illness: stable no new issues - Current Medication List Current Medications: Active Medications Acetaminophen (Tylenol -) 650 mg PO Q4H PRN PRN Reason: PAIN LEVEL 1-5 Last Admin: 02/06/18 06:29 Dose: 650 mg Apixaban (Eliquis -) 5 mg PO BID [facility] Last Admin: 02/06/18 09:06 Dose: 5 mg Atorvastatin Calcium (Lipitor -) 40 mg PO HS [facility] Last Admin: 02/05/18 22:08 Dose: 40 mg Docusate Sodium (Colace -) 200 mg PO HS [facility] Last Admin: 02/05/18 21:48 Dose: Not Given Donepezil HCl (Aricept -) 10 mg PO [facility] Last Admin: 02/05/18 22:09 Dose: 10 mg Escitalopram Oxalate (Lexapro -) 10 mg PO DAILY [facility] Last Admin: 02/06/18 09:06 Dose: 10 mg Guaifenesin (Robitussin -) 5 ml PO Q6H PRN PRN Reason: COUGH/CHEST CONGESTION Ceftriaxone Sodium 1 gm/ (Dextrose) 50 mls @ 100 mls/hr IVPB DAILY [facility]; Protocol Last Admin: 02/06/18 10:40 Dose: 100 mls/hr Insulin Aspart (Novolog Vial Sliding Scale -) 1 vial SQ ACHS [facility]; Protocol Last Admin: 02/06/18 12:00 Dose: Not Given Lisinopril (Prinivil) 5 mg PO DAILY [facility] Last Admin: 02/06/18 09:06 Dose: 5 mg Magnesium Oxide (Mag-Ox -) 800 mg PO DAILY [facility] Stop: 02/07/18 10:01 Last Admin: 02/06/18 09:07 Dose: 800 mg Metoprolol Succinate (Toprol Xl -) 25 mg PO DAILY [facility] Last Admin: 02/06/18 09:06 Dose: 25 mg Non-Formulary Medication (Memantine Hcl [Namenda Xr]) 28 mg PO DAILY [facility] Risperidone (Risperdal -) 0.5 mg PO [facility] Last Admin: 02/05/18 22:08 Dose: 0.5 mg Senna (Senna -) 1 tab PO [facility] Last Admin: 02/05/18 21:48 Dose: Not Given Tamsulosin HCl (Flomax -) 0.4 mg PO [facility] Last Admin: 02/05/18 22:08 Dose: 0.4 mg - Objective Vital Signs: Vital Signs Temperature 97.6 F 02/06/18 14:00 Pulse Rate 78 02/06/18 14:00 Respiratory Rate 18 02/06/18 14:00 Blood Pressure 122/77 02/06/18 14:00 O2 Sat by Pulse Oximetry (%) 97 02/06/18 09:00 Constitutional: Yes: No Distress, Calm Cardiovascular: Yes: Regular Rate and Rhythm Respiratory: Yes: Regular, CTA Bilaterally Gastrointestinal: Yes: Normal Bowel Sounds, Soft Musculoskeletal: Yes: WNL Extremities: Yes: WNL Neurological: Yes: Other Psychiatric: Yes: Other Labs: CBC, BMP 02/05/18 06:45 02/06/18 07:45 INR, PTT INR 1.78 (0.83-1.09) H 02/03/18 02:38 Assessment/Plan 82 yo M PMH of vascular dementia, CVA with left sided hemiparesis, Afib on eliquis, CVA, DM, HTN, HLD, BPH, recurrent UTIs, urinary retention with ESBL e.coli and neurogenic bladder presents from [facility] with vomiting low BP at [place] and low grade fever orally. Sepsis A-fib HLD DM BPH Dementia plan continue current mgmt will d/w the team stable rest as per the team
--- NOTE | 2018-02-06 16:44 | DS ---
Physical Exam: SUBJECTIVE: Patient seen and examined at bedside this morning. Patient complained of groin pain, which was evaluated with scrotal ultrasound, and replacement of arriola catheter. OBJECTIVE: Vital Signs Period Temp Pulse Resp BP Sys/De La Cruz Pulse Ox Last 24 Hr 97.6 F-98.1 F 76-86 18-18 122-159/75-98 95-97 PHYSICAL EXAM GENERAL: The patient is awake, oriented to self only, in no acute distress. HEENT: Normocephalic, atraumatic. PERRL, sclera anicteric, conjunctiva clear. Dry mucous membranes LUNGS: Poor inspiratory effort, and air entry B/L. No wheezes, crackles auscultated. No accessory muscle use HEART: Irregular rate and rhythm, S1, S2 without murmur, rub or gallop. ABDOMEN: Obese. Soft, nontender, nondistended. no guarding, no rebound tenderness. No hepatosplenomegaly appreciated. GENITAL: Arriola catheter draining clear, yellow urine. Insertion site visualized without bleeding, drainage, or erythema. Testicles are soft, however appear mildly swollen. Tender to palpation. EXTREMITIES: 2+ radial and dorsalis pedis pulses b/l. pulses, Warm, well- perfused. 1+ pitting edema B/L lower extremities. NEUROLOGICAL: Freely moves all four extremities. Good muscular tone b/l upper and lower extremities. SKIN: Warm, dry. LABS Laboratory Results - last 24 hr 02/05/18 02/05/18 02/06/18 16:47 22:07 04:45 Sodium Potassium Chloride Carbon Dioxide Anion Gap BUN Creatinine Creat Clearance w eGFR POC Glucometer 111 106 106 Random Glucose Calcium Phosphorus Magnesium 02/06/18 02/06/18 07:45 11:38 Sodium 143 Potassium 3.9 Chloride 110 H Carbon Dioxide 25 Anion Gap 8 BUN 14 Creatinine 0.7 Creat Clearance w eGFR > 60 POC Glucometer 99 Random Glucose 106 Calcium 8.0 L Phosphorus 2.9 Magnesium 1.8 HOSPITAL COURSE: Date of Admission:02/03/18 Date of Discharge: 02/06/18 Patient is an 82 year old male with history of recurrent (and ESBL E. coli) UTI , vascular dementia, CVA, Afib on eliquis, diabetes mellitus, hypertension, hyperlipidemia, benign prostatic hyperplasia, presents from [facility] for UTI. Patient received vancomycin and meropenem in ED. Switched to Ertapenem, and following cultures growing E. coli and Group D strep, he was switched to Ceftriaxone. Lactic acidosis resolved from 3.3 to 1.3 with IV fluid hydration. Home medications for Afib, DM, Hyperlipidemia, and Dementia were reinstated. Renal and bladder US shows minimal to mild left hydronephrosis, without right sided hydronephrosis. Patient complained of groin pain, and scrotal US negative for testicular torsion. 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 Arriola catheter was changed, and replaced with new arriola catheter. Patient discharged with three more days of Levaquin, Bacid, and Flomax. Discharged back to [facility] with instruction to follow up with primary care physician and urologist within 2-3 days after discharge. Minutes to complete discharge: 35 Discharge Summary Reason For Visit: SEVERE SEPSIS Current Active Problems Severe sepsis (Acute) Condition: Stable - Instructions Diet, Activity, Other Instructions: You were admitted for urinary tract infection, and treated with intravenous antibiotics Continue taking your home medications as directed You will begin taking Flomax 0.4mg daily. You are discharged on antibiotic Levaquin 500mg daily for three days starting tomorrow. You are being discharged back to [facility]. You will follow up with your primary care physician within two- three days after discharge You will also follow up with Urologist Dr. Montana within two-three days after discharge. Your CT showed debris in your bladder. Further, your ultrasound of your testicles shows multiple cystic mass on your left testicle. You will follow up these findings with your Urologist, and primary care physician. Your prostate will also be further examined with Urologist. You will need to discuss if arriola can be removed on next visit with urologist. It is important to follow up stool studies, and cultures. Please have [facility] physician follow up on the final stool culture results. Return to the nearest Emergency Department if worsening symptoms, fevers, chills , shortness of breath, chest pain, palpitations, abdominal pain, nausea, vomiting, diarrhea, painful urination, blood within the urine or any new concerns. Referrals: Khalida Montana MD [Staff Physician] - Disposition: [facility] - Home Medications Comprehensive Discharge Medication List: Ambulatory Orders Alfuzosin HCl [Uroxatral] 10 mg PO DAILY 01/25/18 Atorvastatin Ca [Lipitor] 40 mg PO HS 01/25/18 Docusate Sodium 200 mg PO HS 01/25/18 Donepezil HCl 10 mg PO HS 01/25/18 Escitalopram Oxalate [Lexapro -] 10 mg PO DAILY 01/25/18 Guaifenesin [Robitussin -] 100 mg PO Q6H PRN 01/25/18 Lisinopril 5 mg PO DAILY 01/25/18 Memantine HCl [Namenda Xr] 28 mg PO DAILY 01/25/18 Polyethylene Glycol 3350 17 gm PO DAILY 01/25/18 Risperidone [Risperdal -] 0.5 mg PO HS 01/25/18 Sennosides [Senokot] 8.6 mg PO HS 01/25/18 metFORMIN HCL [Metformin HCl] 500 mg PO BID 01/25/18 Apixaban [Eliquis -] 5 mg PO BID tablet 01/26/18 L. Acidophilus/L.bulgaricus [Lactobacillus Tablet] 1 each PO DAILY 3 Days #3 tablet 02/06/18 Levofloxacin [Levaquin] 500 mg PO DAILY 3 Days #3 tablet 02/06/18 Metoprolol Succinate [Toprol XL -] 25 mg PO DAILY tab.sr.24h 02/06/18 Sennosides [Senna -] 1 tab PO HS tablet 02/06/18 Tamsulosin HCl [Flomax -] 0.4 mg PO HS 14 Days #14 cap.er.24h 02/06/18 This patient is new to me today: No Emergency Visit: Yes ED Registration Date: 02/03/18 Care time: The patient presented to the Emergency Department on the above date and was hospitalized for further evaluation of their emergent condition. Critical Care patient: No - Discharge Referral Referred to [facility] No
[2018-02-06 18:44] VITALS: BP 159/76; PULSE 85; TEMP 98.4
--- NOTE | 2018-04-04 07:27 | EKG ---
Test Reason : Blood Pressure : / mmHG Vent. Rate : 104 BPM Atrial Rate : 101 BPM P-R Int : 000 ms QRS Dur : 090 ms QT Int : 370 ms P-R-T Axes : 000 014 008 degrees QTc Int : 486 ms ATRIAL FIBRILLATION WITH RAPID VENTRICULAR RESPONSE NONSPECIFIC ST ABNORMALITY ABNORMAL ECG Confirmed by HARIKA GUZMÁN MD ([id number]) on 04/01/2018 1:21:09 PM Referred By: Confirmed By:HARIKA GUZMÁN MD
== END 2018-02-06 19:49 | DRG 698 ==
LOC: JER 20:50 → JERBED 02-03 03:02 → J4S 02-03 19:42
PROVIDERS: ADMIT Internal Medicine; ATTEND Hospitalist
DX: T83.511A Infection and inflammatory reaction due to indwelling urethral catheter, initial encounter (principal); A41.9 Sepsis, unspecified organism; R65.20 Severe sepsis without septic shock; N13.30 Unspecified hydronephrosis; I69.354 Hemiplegia and hemiparesis following cerebral infarction affecting left non-dominant side; E87.2 Acidosis; N17.9 Acute kidney failure, unspecified; N39.0 Urinary tract infection, site not specified; I48.91 Unspecified atrial fibrillation; E78.5 Hyperlipidemia, unspecified; E11.9 Type 2 diabetes mellitus without complications; N40.0 Benign prostatic hyperplasia without lower urinary tract symptoms; B96.20 Unspecified Escherichia coli [E. coli] as the cause of diseases classified elsewhere; B95.2 Enterococcus as the cause of diseases classified elsewhere; F01.50 Vascular dementia, unspecified severity, without behavioral disturbance, psychotic disturbance, mood disturbance, and anxiety; E83.42 Hypomagnesemia; I10 Essential (primary) hypertension; N31.9 Neuromuscular dysfunction of bladder, unspecified; R33.9 Retention of urine, unspecified; N43.3 Hydrocele, unspecified; Y83.9 Surgical procedure, unspecified as the cause of abnormal reaction of the patient, or of later complication, without mention of misadventure at the time of the procedure
CPT/HCPCS: 36415; 71045-TC-FY; 74176-TC; 76775-TC; 76856-TC; 76870-TC; 80048; 80053; 81003; 81015; 82803; 82962; 83605; 83735; 84100; 84484; 85025; 85027; 85610; 85730; 87040; 87045; 87046; 87086; 87177; 87186; 87209; 87324; 87449; 93005; 93010; 97116-GP; 97161-GP; 99285-25; J7030